=== PATIENT | male | born 1965 | race Caucasian/White ===

== ENCOUNTER 2017-04-01 18:42 | Emergency (ER) | payer OTHER ==
[~2017-04-01] VITALS: Ht 177.8 cm; Wt 80.3 kg
[2017-04-01 18:45] VITALS: TEMP 36.8; Ht 177.8 cm; Wt 80.3 kg
[2017-04-01] MEDS ORDERED: HYDROCODONE/ACETAMOPHEN 5/325MG TAB PO ONE (19:15)
[2017-04-01] MEDS ORDERED: BUPR-267 PO (19:17)
--- NOTE | 2017-04-01 19:48 | DIAGNOSTIC IMAGING REPORT ---
RIGHT SHOULDER 3 VIEWS HISTORY: right shoulder pain Right COMPARISON: None. FINDINGS: There is no fracture or dislocation. Soft tissues are unremarkable. No radiopaque foreign bodies. The right clavicle is intact. IMPRESSION: No fractures. Electronically signed by: Artis Nicole M.D. 04/01/2017 7:46 PM Dictated Date/Time: 04/01/2017 7:46 PM
[2017-04-01] MEDS ORDERED: PRED20TA2 PO (20:27)
[2017-04-01] MEDS ORDERED: HYDR-5688 PO (20:27)
[2017-04-01 20:57] VITALS: BP 137/84; PULSE 78; O2SAT 98
--- NOTE | 2017-04-01 22:16 | EMERGENCY ROOM VISIT NOTE ---
ED Visit Note First contact with patient: 18:51 CHIEF COMPLAINT: Shoulder pain HISTORY OF PRESENT ILLNESS: This 51-year-old male patient presents to the emergency department complaining of pain in the right shoulder worsening over the past 2-3 days. The patient does not recall a distinct injury or trauma. He does lift and move at work, which may be contributing to his pain. There is mild limitation of motion of the arm because of the pain. The pain is moderate, constant and increases with motion of the hand and arm. The patient states the pain is dull and 7/10. The patient has taken NSAIDs without significant relief of the pain. No previous significant previous shoulder disease or injury. No numbness or tingling. No neck and no back pain. No chest pain or shortness of breath. No abdominal pain or nausea/vomiting. No cough. REVIEW OF SYSTEMS: A 6 system review of systems was performed with positives and pertinent negatives in the HPI. ALLERGIES: No known allergies MEDICATIONS: No chronic medications PMH: Otherwise healthy SOCIAL HISTORY: Employed and lives with family PHYSICAL EXAM: Vital Signs: Reviewed nurse's notes, vital signs stable. GENERAL : White male, in no acute distress, but appears to be in pain, well-developed, well-nourished. MUSCULOSKELETAL: There is no deformity in the contour of the right shoulder and there are no deidra deformities noted. There is no sulcus sign. There is tenderness over the supraspinatus and distal clavicle. The patient's range of motion is mildly. Supraspinatus strength for/5. There is mild clavicle tenderness. No tenderness of the humerus, elbow, wrist, or hand. 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 Radial pulse 2+. NECK: No tenderness to palpation over the cervical spine. HEART: Regular rate and rhythm without murmurs gallops or rubs. LUNGS: Clear to auscultation bilaterally without wheezes, rales or rhonchi. No accessory muscle use. No retractions. NEURO: The patient is alert and oriented to person, place, and time. Normal sensation to light and sharp touch. Capillary refill less than 2 seconds. RIGHT SHOULDER 3 VIEWS HISTORY: right shoulder pain Right COMPARISON: None. FINDINGS: There is no fracture or dislocation. Soft tissues are unremarkable. No radiopaque foreign bodies. The right clavicle is intact. IMPRESSION: No fractures. EMERGENCY DEPARTMENT COURSE: Physical exam and history were performed. Nursing notes and EMR were reviewed. The patient appears to have right shoulder pain for the past several days without distinct injury or trauma. X-rays were obtained and do not show evidence of acute fracture or dislocation. The patient was treated here in the ER with Vicodin and prednisone. He will be given a continuation prescription of these medications. I recommend that he follow with orthopedics if his symptoms persist over the rest of the week. He was otherwise invited back to the ER with new, worsening, or concerning symptoms. Problem List Medical Problems: (1) FAM HX-CARDIOVAS DIS NEC Status: Chronic (2) FAM HX-DIABETES MELLITUS Status: Chronic (3) LUMBAGO Status: Chronic (4) TOBACCO USE DISORDER Status: Chronic Current/Historical Medications Scheduled Bupropion Hcl (Bupropion Hcl Er), 150 MG PO DAILY Prednisone (Prednisone Tab), 2 TAB PO DAILY Scheduled PRN Hydrocodone/Acetaminophen 5MG/325MG ([place] 5MG/325MG), 1 TABLET PO Q6 PRN for Pain Allergies Coded Allergies: No Known Allergies (Unverified , 08/09/15) Vital Signs Date Time Temp Pulse Resp B/P (MAP) Pulse Ox O2 Delivery O2 Flow Rate FiO2 04/01/17 20:57 78 18 137/84 98 04/01/17 18:45 36.8 82 16 132/93 96 Room Air Medications Administered Medications (Trade) Dose Ordered Sig/Lew Route Start Time Stop Time Status Last Admin Dose Admin Acetaminophen/ Hydrocodone Bitart ([place] 5/325 Tab) 1 tab NOW ONCE PO 04/01/17 19:15 04/01/17 19:16 DC 04/01/17 19:17 1 TAB Prednisone (PredniSONE TAB) 40 mg NOW STAT PO 04/01/17 19:05 04/01/17 19:06 DC 04/01/17 19:17 40 MG Departure Information Impression Primary Impression: Right shoulder pain Dispostion Home / Self-Care Condition GOOD Prescriptions Prednisone (Prednisone Tab) 20 Mg Tab 2 TAB PO DAILY for 5 Days, #10 TAB Prov: Juan Slater PA-C 04/01/17 Hydrocodone/Acetaminophen 5MG/325MG ([place] 5MG/325MG) Tab 1 TABLET PO Q6 Y for Pain, #12 TAB For Initial Treatment Prov: Juan Slater PA-C 04/01/17 Referrals Scott Castellanos M.D. Forms HOME CARE DOCUMENTATION FORM, Work Instructions, Additional Instructions: Patient was seen and evaluated today in the emergency department fo medical care. May not use right arm at work until 04/05/2017. IMPORTANT VISIT INFORMATION Patient Instructions My [facility] Additional Instructions You were seen and evaluated today on an emergency basis only. This is not a substitute for, or an effort to provide, complete comprehensive medical care. It is not possible to recognize and treat all injuries or illnesses in a single emergency department visit. For this reason it is recommended that you followup with [facility], Dr. Castellanos's office, with any ongoing or persistent symptoms For baseline pain relief you may alternate ibuprofen and acetaminophen every 4 hours for pain control. Take 600 mg ibuprofen (Advil) and then 4 hours later take 1000 mg acetaminophen (Tylenol). Do not take more than 3000 mg acetaminophen in a single day. [place] (hydrocodone/acetaminophen) 5/325 mg every 6 hours as needed for worsening breakthrough pain. Do not drink or drive on [place]. This medication will likely make you tired. Do not take [place] and Tylenol at the same time as both contain acetaminophen. [place] may cause constipation. You may wish to take an [id number] stool softener like Colace if this occurs. Take prednisone as prescribed You are welcome to return to the emergency department anytime with new, worsening, or concerning symptoms. Work Instructions Additional Work Instructions: Patient was seen and evaluated today in the emergency department for medical care. May not use right arm at work until 04/05/2017.
== END 2017-04-01 20:45 | disposition home or self-care (01) ==
LOC: C.EDB 18:43 → C.EDD 20:45
DX: M25.511 Pain in right shoulder (principal); M54.5 Low back pain; F17.200 Nicotine dependence, unspecified, uncomplicated; Z83.3 Family history of diabetes mellitus; Z82.49 Family history of ischemic heart disease and other diseases of the circulatory system

== ENCOUNTER 2017-07-24 19:33 | Emergency (ER) | payer OTHER ==
[~2017-07-24] VITALS: Ht 180.3 cm; Wt 75.0 kg
[~2017-07-24 19:33] MED LIST: BUPR-267 PO; HYDR-5688 PO
[2017-07-24 19:40] VITALS: BP 115/70; TEMP 36.8; Ht 180.3 cm; Wt 75.0 kg
[2017-07-24] MEDS ORDERED: HYDROCODONE/ACETAMOPHEN 5/325MG TAB PO STA (20:03)
[2017-07-24] MEDS ORDERED: NORCO 5/325MG HOME PACK PO STA (20:03)
[2017-07-24] MEDS ORDERED: HYDR-5688 PO (20:06)
[2017-07-24] MEDS ORDERED: PRED20TA2 PO (20:06)
--- NOTE | 2017-07-24 20:08 | EMERGENCY ROOM VISIT NOTE ---
History First contact with patient: 19:54 Chief Complaint: SHOULDER PAIN Stated Complaint: SHOULDER PAIN RIGHT SHOULDER History of Present Illness The patient is a 51 year old male who presents to the Emergency Room via private vehicle accompanied by female with complaints of "shoulder pain right shoulder". The patient states that he has had pain in his right shoulder over the past few years. 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 He denies any chest pain or shortness of breath. It is not worse with exertion, but rather with overhead lifting of the right arm. Review of Systems A complete 6-point Review of Systems was discussed with the patient, with pertinent positives and negatives listed in the History of Present Illness. All remaining Review of Systems questions can be considered negative unless otherwise specified. Past Medical/Surgical History Medical Problems: (1) FAM HX-CARDIOVAS DIS NEC (2) FAM HX-DIABETES MELLITUS (3) LUMBAGO (4) TOBACCO USE DISORDER Family History Diabetes, heart disease, high blood pressure, cancer. Social History Smoking Status: Current Some Day Smoker Alcohol Use: occasionally Occupation Status: employed Current/Historical Medications Scheduled Bupropion Hcl (Bupropion Hcl Er), 150 MG PO DAILY Prednisone (Prednisone Tab), 2 TAB PO DAILY Scheduled PRN Hydrocodone/Acetaminophen 5MG/325MG ([place] 5MG/325MG), 1 TABLET PO Q6 PRN for Pain Hydrocodone/Acetaminophen 5MG/325MG ([place] 5MG/325MG), 1 TABLET PO Q6 PRN for Pain Allergies Coded Allergies: No Known Allergies (Unverified , 08/09/15) Physical Exam Vital Signs Date Time Temp Pulse Resp B/P (MAP) Pulse Ox O2 Delivery O2 Flow Rate FiO2 07/24/17 20:26 74 20 96 07/24/17 19:40 36.8 78 18 115/70 98 Room Air Physical Exam VITAL SIGNS - Vital signs and nursing notes were reviewed. Stable. GENERAL -51-year-old male appearing his stated age who is in no acute distress. Communicates well with provider and answers questions appropriately. SKIN - Without rashes. No petechial rashes. HEAD - NC/AT. LUNGS - Chest wall symmetric without accessory muscle use, intercostals retractions, or central cyanosis. Normal vesicular breath sounds CTA B/L. No wheezes, rales, or rhonchi appreciated. CARDIAC - RRR with S1/S2. No murmur, rubs, or gallops appreciated. EXTREMITIES - No clubbing or peripheral cyanosis. Patient is neurovascularly intact in the right upper extremity. 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 Patient does have difficulty with abduction beyond 90. Negative empty can test. He points to the posterior right shoulder region as the location of pain, but there is no tenderness to palpation here. +5/5 strength noted in UE/LE bilaterally. Medical Decision & Procedures Medications Administered Medications (Trade) Dose Ordered Sig/Lew Route Start Time Stop Time Status Last Admin Dose Admin Acetaminophen/ Hydrocodone Bitart ([place] 5/325mg Home Pack) 1 homepack UD STAT PO 07/24/17 20:03 07/24/17 20:04 DC 07/24/17 20:23 1 HOMEPACK Acetaminophen/ Hydrocodone Bitart ([place] 5/325 Tab) 1 tab NOW STAT PO 07/24/17 20:03 07/24/17 20:04 DC 07/24/17 20:23 1 TAB Prednisone (PredniSONE TAB) 40 mg NOW STAT PO 07/24/17 20:03 07/24/17 20:04 DC 07/24/17 20:23 40 MG Medical Decision Patient was seen and evaluated as above. Previous visits were extensively reviewed. He presents to us today with what appears to be an exacerbation of his underlying chronic shoulder pain. No evidence of heart attack or emergent process on exam. Reassuringly, the pain is reproducible on range of motion of the right shoulder. He declined imaging. He notes that when he received in the past was beneficial. I reviewed the chart, and he received prednisone and [place]. PD MP was reviewed, no red flags. He will be given a short course, and is to follow-up with his family doctor and subsequently the orthopedic doctor who performed the shoulder surgery on the other side. Patient was educated upon management, educated upon worrisome symptoms which to return, had questions answered prior to discharge, and was discharged home in good condition. He was given the first doses here and was not driving home. In the evaluation and treatment of this patient, the following differential diagnoses were considered: Shoulder Contusion, Shoulder Fracture, Shoulder Dislocation, Thoracic Outlet Syndrome, Adhesive Capsulitis, Rotator Cuff Tear, Proximal Clavicle Head Fracture, Apical Pneumonia, Pneumothorax, Hemothorax, or TB. Impression Primary Impression: Shoulder pain, right Departure Information Dispostion Home / Self-Care Condition GOOD Prescriptions Hydrocodone/Acetaminophen 5MG/325MG ([place] 5MG/325MG) Tab 1 TABLET PO Q6 Y for Pain, #12 TAB For Initial Treatment Prov: Dani Haji PA-C 07/24/17 Prednisone (Prednisone Tab) 20 Mg Tab 2 TAB PO DAILY for 5 Days, #10 TAB Prov: Dani Haji PA-C 07/24/17 Referrals Julio Rea M.D. (MEDICAL) (PCP) Godfrey Guevara M.D. Patient Instructions My [facility] Additional Instructions You have been treated in the Emergency Department for Shoulder Pain. You have received pain medicine in the emergency department which impairs your ability to operate a vehicle. It is illegal for you to drive after receiving these medicines. You have been prescribed NORCO to be used for pain control. This is a narcotic medication. You cannot drive or consume alcohol while on this medicine. This medicine should only be used for pain that cannot be controlled with over-the- counter pain medicines. PLEASE NO TYLENOL WITH THIS!! You have been provided the number for an Orthopaedic Surgeon. You should call this number as soon as possible to establish a follow-up visit from today's Emergency Department visit. Keep the shoulder brace/sling in place until evaluated by Orthopedics. Continue to perform range of motion exercises several times per day to help prevent the development of a "frozen shoulder". Return to the Emergency Department if your current symptoms worsen despite treatment course outlined above, or if you develop any of the following symptoms : intractable pain despite aforementioned treatment course or new onset of numbness or tingling of the arm.
[2017-07-24 20:26] VITALS: PULSE 74; O2SAT 96
== END 2017-07-24 20:27 | disposition home or self-care (01) ==
LOC: C.EDB 19:35 → C.EDD 20:27
DX: M25.511 Pain in right shoulder (principal); G89.29 Other chronic pain; F17.200 Nicotine dependence, unspecified, uncomplicated; Z79.899 Other long term (current) drug therapy; Z82.49 Family history of ischemic heart disease and other diseases of the circulatory system; Z83.3 Family history of diabetes mellitus; Z80.9 Family history of malignant neoplasm, unspecified

== ENCOUNTER 2017-12-03 19:25 | Emergency (ER) | payer OTHER ==
[~2017-12-03] VITALS: Ht 180.3 cm; Wt 73.2 kg
[2017-12-03 19:28] VITALS: TEMP 36.9; Ht 180.3 cm; Wt 73.2 kg
[2017-12-03] MEDS ORDERED: SODIUM CHLORIDE 0.9% 1000ML 1,000 ML IV STA (19:48)
[2017-12-03 20:11] VITALS: O2SAT 99
[2017-12-03 20:14] LABS: BASO % 0.6 %; BASO ABS # 0.06 K/uL (0-0.2); EOS % 1.1 %; EOS ABS # 0.11 K/uL (0-0.5); HEMATOCRIT 39.4 % (42-52); HEMOGLOBIN 13.4 g/dL (14.0-18.0); IG# 0.03 K/uL (0.00-0.02); LYMPH % 20.6 %; LYMPH ABS # 2.05 K/uL (1.2-3.4); MEAN CELL VOLUME 84.9 fL (80-100); MEAN CORPUSCULAR HEMOGLOBIN 28.9 pg (25-34); MEAN PLATELET VOLUME 8.9 fL (7.4-10.4); MONO % 4.6 %; MONO ABS # 0.46 K/uL (0.11-0.59); NEUT % 72.8 %; NEUT ABS # 7.25 K/uL (1.4-6.5); PLATELET COUNT 277 K/uL (130-400); RED CELL DISTRIBUTION WIDTH CV 13.5 % (11.5-14.5); RED CELL DISTRIBUTION WIDTH SD 41.6 fL (36.4-46.3); WHITE BLOOD COUNT 9.96 K/uL (4.8-10.8)
--- NOTE | 2017-12-03 20:20 | DIAGNOSTIC IMAGING REPORT ---
CHEST ONE VIEW PORTABLE CLINICAL HISTORY: EVALUATE ALTERED MENTAL STATUS/WEAKNESS COMPARISON STUDY: Chest radiograph May 11, 2013. FINDINGS: Lung volumes are normal. No pneumothorax or pleural effusion is noted. Lungs are clear. Cardiac size is normal. Mediastinal contours are normal. There is no evidence for pulmonary edema. IMPRESSION: No acute cardiopulmonary findings. Electronically signed by: Fabricio Healy M.D. 12/03/2017 8:19 PM Dictated Date/Time: 12/03/2017 8:18 PM
[2017-12-03 20:27] LABS: PTT PATIENT 25.9 SECONDS (21.0-31.0)
[2017-12-03 20:41] LABS: ALBUMIN 4.1 gm/dl (3.4-5.0); ALT/SGPT 24 U/L (12-78); BLOOD UREA NITROGEN 10 mg/dl (7-18); CARBON DIOXIDE 27 mmol/L (21-32); CREATININE 0.95 mg/dl (0.60-1.40); GLUCOSE 121 mg/dl (70-99); POTASSIUM 3.6 mmol/L (3.5-5.1); SODIUM 137 mmol/L (136-145)
[2017-12-03 20:52] LABS: ALKALINE PHOSPHATASE 58 U/L (45-117); AST/SGOT 17 U/L (15-37); PHOSPHORUS 2.5 mg/dl (2.5-4.9); TOTAL PROTEIN 7.4 gm/dl (6.4-8.2)
--- NOTE | 2017-12-03 21:05 | EMERGENCY ROOM VISIT NOTE ---
History Report prepared by Ten: Case Juares Under the Supervision of: Dr. José Church M.D. First contact with patient: 19:43 Chief Complaint: SYNCOPE Stated Complaint: BLACKED OUT, MANUELITOKEY- Nursing Triage Summary: pt presents stating his work was concerned and wanted him to be evaluated. family member states "he was sent home for an episode last week. tonight she called me and said he was on the floor and flailing his arms and couldn't speak right." pt denies LOC, states "i remember everything." in triage, pt is alert and oriented x4, breathing WNL, ambulatory with upright and steady, independent gait, speech clear, and denies pain. History of Present Illness The patient is a 51 year old white male with no pertinent past medical history who presents to the ED with a cc of a stroke-like episode that occurred earlier today at work. Positive shaking, slurring of words. Negative loss of consciousness, cough, fevers, chills, nausea, vomiting, abdominal pain, urinary symptoms, bowel movement problems, worsening numbness. The patient states that he had an episode last week while at work where he was repetitive with questioning and was noted to be shaking and slurring words. He says that he then had another similar episode earlier today. He says that he remembered the entirety of both episodes. The patient states that after the first episode, he called his family doctor, and was told to stop his Prozac. He adds that he has not been sleeping that well recently. The patient notes a family history of strokes. He chews tobacco, and does not use recreational drugs. The patient notes no history of seizures. Source of History: patient, family Onset: Earlier today at work Position: other (global) Symptom Intensity: shaking, slurring words Quality: other (stroke-like episode) Timing: other (episode) Associated Symptoms: No LOC, No fevers, No chills, No cough, No nausea, No vomiting, No abdominal pain, No urinary symptoms (or bowel movement changes), No numbness (worsening) Review of Systems See HPI for pertinent positives and negatives. A total of ten systems were reviewed and were otherwise negative. Past Medical & Surgical Medical Problems: (1) FAM HX-CARDIOVAS DIS NEC (2) FAM HX-DIABETES MELLITUS (3) LUMBAGO (4) TOBACCO USE DISORDER Family History Cancer Diabetes mellitus Heart disease Hypertension Stroke Social History Smoking Status: Current Some Day Smoker Smokeless Tobacco Use: occasional Alcohol Use: occasionally Occupation Status: employed Current/Historical Medications No Active Prescriptions or Reported Meds Allergies Coded Allergies: No Known Allergies (Unverified , 08/09/15) Physical Exam Vital Signs Date Time Temp Pulse Resp B/P (MAP) Pulse Ox O2 Delivery O2 Flow Rate FiO2 12/03/17 22:12 74 18 126/81 99 Room Air 12/03/17 21:07 75 18 154/89 99 Room Air 12/03/17 20:55 73 12/03/17 20:11 99 Room Air 12/03/17 19:28 36.9 83 18 136/100 99 Room Air Physical Exam GENERAL: Awake, alert, well-appearing, NAD HENT: Normocephalic, atraumatic. EYES: Normal conjunctiva. Sclera non-icteric. NECK: Supple. No nuchal rigidity. FROM. RESPIRATORY: CTAB, no rhonchi, wheezing, crackles CARDIAC: RRR, no MRG ABDOMEN: Soft, NTND, BS+ MSK: No chest wall TTP, no LE edema NEURO: CN 2-12 intact, 5/5 upper and lower extremity strength, no dysmetria, no drift, good finger to nose, no sensory deficits. SKIN: No rash or jaundice noted. Medical Decision & Procedures ER Provider Diagnostic Interpretation: X-ray: Per my interpretation, radiologist review. CHEST ONE VIEW PORTABLE CLINICAL HISTORY: EVALUATE ALTERED MENTAL STATUS/WEAKNESS COMPARISON STUDY: Chest radiograph May 11, 2013. FINDINGS: Lung volumes are normal. No pneumothorax or pleural effusion is noted. Lungs are clear. Cardiac size is normal. Mediastinal contours are normal. There is no evidence for pulmonary edema. IMPRESSION: No acute cardiopulmonary findings. Electronically signed by: Fabricio Healy M.D. 12/03/2017 8:19 PM Dictated Date/Time: 12/03/2017 8:18 PM Laboratory Results 12/03/17 20:00 Red Blood Count 4.64, Mean Corpuscular Volume 84.9, Mean Corpuscular Hemoglobin 28.9, Mean Corpuscular Hemoglobin Concent 34.0, Mean Platelet Volume 8.9, Neutrophils (%) (Auto) 72.8, Lymphocytes (%) (Auto) 20.6, Monocytes (%) (Auto) 4.6, Eosinophils (%) (Auto) 1.1, Basophils (%) (Auto) 0.6, Neutrophils # (Auto) 7.25, Lymphocytes # (Auto) 2.05, Monocytes # (Auto) 0.46, Eosinophils # (Auto) 0.11, Basophils # (Auto) 0.06 12/03/17 20:00 Test 12/03/17 20:00 12/03/17 20:10 White Blood Count 9.96 K/uL (4.8-10.8) Red Blood Count 4.64 M/uL (4.7-6.1) Hemoglobin 13.4 g/dL (14.0-18.0) Hematocrit 39.4 % (42-52) Mean Corpuscular Volume 84.9 fL (80-100) Mean Corpuscular Hemoglobin 28.9 pg (25-34) Mean Corpuscular Hemoglobin Concent 34.0 g/dl (32-36) Platelet Count 277 K/uL (130-400) Mean Platelet Volume 8.9 fL (7.4-10.4) Neutrophils (%) (Auto) 72.8 % Lymphocytes (%) (Auto) 20.6 % Monocytes (%) (Auto) 4.6 % Eosinophils (%) (Auto) 1.1 % Basophils (%) (Auto) 0.6 % Neutrophils # (Auto) 7.25 K/uL (1.4-6.5) Lymphocytes # (Auto) 2.05 K/uL (1.2-3.4) Monocytes # (Auto) 0.46 K/uL (0.11-0.59) Eosinophils # (Auto) 0.11 K/uL (0-0.5) Basophils # (Auto) 0.06 K/uL (0-0.2) RDW Standard Deviation 41.6 fL (36.4-46.3) RDW Coefficient of Variation 13.5 % (11.5-14.5) Immature Granulocyte % (Auto) 0.3 % Immature Granulocyte # (Auto) 0.03 K/uL (0.00-0.02) Prothrombin Time 11.0 SECONDS (9.0-12.0) Prothromb Time International Ratio 1.0 (0.9-1.1) Activated Partial Thromboplast Time 25.9 SECONDS (21.0-31.0) Partial Thromboplastin Ratio 1.0 Anion Gap 5.0 mmol/L (3-11) Est Creatinine Clear Calc Drug Dose 97.4 ml/min Estimated GFR () 108.5 Estimated GFR (Non- 93.6 BUN/Creatinine Ratio 10.4 (10-20) Calcium Level 9.0 mg/dl (8.5-10.1) Phosphorus Level 2.5 mg/dl (2.5-4.9) Magnesium Level 2.1 mg/dl (1.8-2.4) Total Bilirubin 0.6 mg/dl (0.2-1) Direct Bilirubin < 0.1 mg/dl (0-0.2) Aspartate Amino Transf (AST/SGOT) 17 U/L (15-37) Alanine Aminotransferase (ALT/SGPT) 24 U/L (12-78) Alkaline Phosphatase 58 U/L (45-117) Troponin I < 0.015 ng/ml (0-0.045) Total Protein 7.4 gm/dl (6.4-8.2) Albumin 4.1 gm/dl (3.4-5.0) Thyroid Stimulating Hormone (TSH) 1.960 uIu/ml (0.300-4.500) Urine Color YELLOW Urine Appearance CLEAR (CLEAR) Urine pH 5.5 (4.5-7.5) Urine Specific [place] 1.015 (1.000-1.030) Urine Protein NEG (NEG) Urine Glucose (UA) NEG (NEG) Urine Ketones NEG (NEG) Urine Occult Blood NEG (NEG) Urine Nitrite NEG (NEG) Urine Bilirubin NEG (NEG) Urine Urobilinogen NEG (NEG) Urine Leukocyte Esterase NEG (NEG) Urine Opiates Screen NEG (NEG) Urine Methadone, Qualitative NEG (NEG) Urine Barbiturates NEG (NEG) Urine Phencyclidine (PCP) Level NEG (NEG) Ur Amphetamine/Methamphetamine NEG (NEG) MDMA (Ecstasy) Screen NEG (NEG) Urine Benzodiazepines Screen NEG (NEG) Urine Cocaine Metabolite NEG (NEG) Urine Marijuana (THC) NEG (NEG) Medications Administered Medications (Trade) Dose Ordered Sig/Lew Route Start Time Stop Time Status Last Admin Dose Admin Sodium Chloride 1,000 ml @ 999 mls/hr Q1H1M STAT IV 12/03/17 19:48 12/03/17 20:53 DC 12/03/17 20:04 999 MLS/HR ECG Per My Interpretation Indication: syncope Rate (beats per minute): 75 Rhythm: normal sinus Findings: left axis deviation, other (normal intervals, no sts changes or twi) ED Course 2054: The patient was evaluated in room C3. A complete history and physical exam was performed. 2219: I reevaluated the patient and he is resting comfortably. Discussed results and discharge instructions: he verbalized understanding and agreement. The patient is ready for discharge. Medical Decision The patient is a 51 year old white male with no pertinent past medical history who presents to the ED with a cc of a stroke-like episode that occurred earlier today at work. Positive shaking, slurring of words. Negative loss of consciousness, cough, fevers, chills, nausea, vomiting, abdominal pain, urinary symptoms, bowel movement problems, worsening numbness. Differential diagnosis: Etiologies such as vasovagal event, infection, hypoglycemia, electrolyte abnormalities, cardiac sources, intracerebral event, toxicologic, neurologic, as well as others were entertained. Patient seen and evaluated at bedside. Patient reported had syncope/seizure at work. Patient is adamant that he was looking for parts on the ground of his work place. He remember whole event. No tongue biting or incontinence. Does use chewing tobacco. No smoking. Occasional EtOH. Patient has benign neuro exam. Given lack of seizure, recalls events, normal neuro and no GRULLON, weakness, numbness, or tingling, no CT brain at this time. EKG, labs, UA, UDS obtained. EKG w/o overt arrythmia, trop neg. CXR clear. Mild anemia. UA and UDS neg acute. Patient feeling well. Discussed findings w/ patient. Do not believe he needs further work up but should f/u w/ PCP. Agreed w/ POC. D/c'ed to home. Medication Reconcilliation Current Medication List: was personally reviewed by me Blood Pressure Screening Patient's blood pressure: Elevated blood pressure Blood pressure disposition: Elevated BP felt to be situational Impression Primary Impression: Encounter for smoking cessation counseling Additional Impressions: Lightheaded Anemia Scribe Attestation The scribe's documentation has been prepared under my direction and personally reviewed by me in its entirety. I confirm that the note above accurately reflects all work, treatment, procedures, and medical decision making performed by me. Departure Information Dispostion Home / Self-Care Prescriptions No Active Prescriptions or Reported Meds Referrals Julio Rea M.D. (MEDICAL) (PCP) Patient Instructions Dizziness Fainting Poss Causes, My [facility] Additional Instructions Please return to the emergency department if you have worsening or recurrent symptoms not amenable to at-home treatment. Please call for a follow-up appointment with her primary care physician. Please take your medications as prescribed. If you have other concerns and/or complaints please feel free to also call your primary care physician's office or return the ED for further evaluation, management, and treatment. You may take 600 mg Ibuprofen every 6 hours as needed for pain with food for no more than 2 consecutive days. You may take tylenol 1000 mg every 6 hours as needed for pain. You may take motrin and tylenol separately or at the same time. Take your medications as prescribed. You have been examined and treated today on an emergency basis only. This is not a substitute for, or an effort to provide, complete comprehensive medical care. It is impossible to recognize and treat all injuries or illnesses in a single emergency department visit. It is therefore important that you follow up closely with [facility], your PCP, and/or your specialist(s). Call as soon as possible for an appointment. Thank you for your time and consideration. I look forward to speaking with you again soon. Please don't hesitate to call us if you have any questions. Problem Qualifiers Additional Impressions: Anemia Anemia type: unspecified type Qualified Codes: D64.9 - Anemia, unspecified
[2017-12-03 22:12] VITALS: BP 126/81; PULSE 74; O2SAT 99
== END 2017-12-03 22:22 | disposition home or self-care (01) ==
LOC: C.EDB 19:26 → C.EDC 22:22
DX: R42 Dizziness and giddiness (principal); D64.9 Anemia, unspecified; Z71.6 Tobacco abuse counseling; Z82.3 Family history of stroke; Z82.49 Family history of ischemic heart disease and other diseases of the circulatory system; Z83.3 Family history of diabetes mellitus; Z80.9 Family history of malignant neoplasm, unspecified; F17.210 Nicotine dependence, cigarettes, uncomplicated; F17.220 Nicotine dependence, chewing tobacco, uncomplicated

== ENCOUNTER 2017-12-05 17:51 | Emergency (ER) | payer OTHER ==
[~2017-12-05] VITALS: Ht 180.3 cm; Wt 72.0 kg
[2017-12-05 17:58] VITALS: TEMP 36.9; Ht 180.3 cm; Wt 72.0 kg
[2017-12-05] MEDS ORDERED: SODIUM CHLORIDE 0.9% 1000ML 1,000 ML IV STA (18:55)
--- NOTE | 2017-12-05 18:59 | EMERGENCY ROOM VISIT NOTE ---
History Report prepared by Ten: Ricardo Fernandez Under the Supervision of: Dr. Colten Urbina M.D. 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 I was here a week ago for the same thing." History of Present Illness The patient is a 51 year old male who presents to the Emergency Room with complaints of a resolved syncopal episode that occurred prior to arrival. The patient states he was sitting down at work, stood up, and walked around. He reports he felt fine when he stood up and was walking. The patient notes he went to his work bench to work and does not remember anything after that. He states after leaning onto his work bench he zoned out and 'blacked out' for a few seconds. The patient reports his co-workers said he came to and knocked various tools off the work bench. He notes he had a similar episode last week where he was found on the ground. The patient states he does not remember if he fell or if he was looking for tools on the ground. EMR shows the patient was evaluated 9 years ago for a syncopal episode that lasted 25 minutes, and he did not follow up with his PCP after. He notes he has not had problems until just recently. The patient states he hit his head on the car door a few months ago by accident. He reports he has an appointment with his PCP in a few days for follow up from a week ago. The patient notes he was placed on Prozac because he was slightly depressed and slept a lot. He states he did not like it, so he stopped taking it. The patient denies fevers, chills, cough, congestion, nausea , vomiting, diarrhea, past history of chronic illness, trouble eating, and trouble drinking. He notes he rarely drinks alcohol. 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 A total of ten systems were reviewed and were otherwise negative. Past Medical & Surgical Medical Problems: (1) FAM HX-CARDIOVAS DIS NEC (2) FAM HX-DIABETES MELLITUS (3) LUMBAGO (4) TOBACCO USE DISORDER Family History Cancer Diabetes mellitus Heart disease Hypertension Stroke Social History Smoking Status: Former Smoker Alcohol Use: occasionally Marital Status: single Occupation Status: employed Current/Historical Medications No Active Prescriptions or Reported Meds Allergies Coded Allergies: No Known Allergies (Unverified , 12/05/17) Physical Exam Vital Signs Date Time Temp Pulse Resp B/P (MAP) Pulse Ox O2 Delivery O2 Flow Rate FiO2 12/05/17 21:13 77 18 129/69 98 12/05/17 17:58 36.9 82 20 154/75 98 Room Air Physical Exam GENERAL: Awake, alert, well-appearing, in no distress HENT: Normocephalic, atraumatic. Oropharynx with dry mucus membranes, no evidence of tongue biting, otherwise unremarkable. EYES: Normal conjunctiva. Sclera non-icteric. NECK: Supple. No nuchal rigidity. FROM. No JVD. RESPIRATORY: Clear to auscultation. CARDIAC: Regular rate, normal rhythm. Extremities warm and well perfused. Pulses equal. ABDOMEN: Soft, non-distended. No tenderness to palpation. No rebound or guarding. No masses. RECTAL: Deferred. MUSCULOSKELETAL: Chest examination reveals no tenderness. The back is symmetrical on inspection without obvious abnormality. There is no CVA tenderness to palpation. No joint edema. LOWER EXTREMITIES: Calves are equal size bilaterally and non-tender. No edema. No discoloration. NEURO: Normal sensorium. No sensory or motor deficits noted. normal cerebellar function with [id number], alternating palms, [id number] SKIN: No rash or jaundice noted. Medical Decision & Procedures ER Provider Diagnostic Interpretation: Radiology results as stated below per my review and radiologist interpretation: HEAD WITHOUT CONTRAST (CT) CLINICAL HISTORY: 51 years-old Male presenting with syncope. TECHNIQUE: Multidetector CT imaging of the head was performed without the use of intravenous contrast. IV contrast: None. A dose lowering technique was used consistent with the principles of ALARA (as low as reasonably achievable). COMPARISON: 11/16/2008. CT DOSE (mGy.cm): The estimated cumulative dose is 537.48 mGy.cm. 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 Chronic leftward shift of the septum pellucidum. No hydrocephalus. Apparent crowding of the foramen magnum may indicate tonsillar ectopia, which is unchanged from prior. Brain parenchyma normal in appearance with preserved archer-white differentiation. No mass effect or midline shift. No hemorrhage or acute territorial infarct. No extra-axial fluid collection. Mucosal thickening in ethmoid air cells. Calvarium intact. IMPRESSION: 1. No acute intracranial abnormality. 2. Possible tonsillar ectopia, which is chronic. Electronically signed by: Scott Hanson M.D. 12/05/2017 7:34 PM Dictated Date/Time: 12/05/2017 7:31 PM CHEST ONE VIEW PORTABLE CLINICAL HISTORY: 51 years-old Male presenting with ABDOMINAL PAIN/GI. TECHNIQUE: Portable upright AP view of the chest was obtained. COMPARISON: 12/03/2017. FINDINGS: Cardiomediastinal silhouette normal. Lungs and pleural spaces clear. Osseous structures normal. Upper abdomen normal. IMPRESSION: 1. No acute cardiopulmonary disease. Electronically signed by: Scott Hanson M.D. 12/05/2017 8:10 PM Dictated Date/Time: 12/05/2017 8:10 PM Laboratory Results 12/05/17 19:09 Red Blood Count 4.84, Mean Corpuscular Volume 86.2, Mean Corpuscular Hemoglobin 28.9, Mean Corpuscular Hemoglobin Concent 33.6, Mean Platelet Volume 9.2, Neutrophils (%) (Auto) 66.6, Lymphocytes (%) (Auto) 25.1, Monocytes (%) (Auto) 6.5, Eosinophils (%) (Auto) 1.2, Basophils (%) (Auto) 0.4, Neutrophils # (Auto) 6.17, Lymphocytes # (Auto) 2.32, Monocytes # (Auto) 0.60, Eosinophils # (Auto) 0.11, Basophils # (Auto) 0.04 12/05/17 19:09 Test 12/05/17 19:09 12/05/17 19:30 White Blood Count 9.26 K/uL (4.8-10.8) Red Blood Count 4.84 M/uL (4.7-6.1) Hemoglobin 14.0 g/dL (14.0-18.0) Hematocrit 41.7 % (42-52) Mean Corpuscular Volume 86.2 fL (80-100) Mean Corpuscular Hemoglobin 28.9 pg (25-34) Mean Corpuscular Hemoglobin Concent 33.6 g/dl (32-36) Platelet Count 299 K/uL (130-400) Mean Platelet Volume 9.2 fL (7.4-10.4) Neutrophils (%) (Auto) 66.6 % Lymphocytes (%) (Auto) 25.1 % Monocytes (%) (Auto) 6.5 % Eosinophils (%) (Auto) 1.2 % Basophils (%) (Auto) 0.4 % Neutrophils # (Auto) 6.17 K/uL (1.4-6.5) Lymphocytes # (Auto) 2.32 K/uL (1.2-3.4) Monocytes # (Auto) 0.60 K/uL (0.11-0.59) Eosinophils # (Auto) 0.11 K/uL (0-0.5) Basophils # (Auto) 0.04 K/uL (0-0.2) RDW Standard Deviation 42.2 fL (36.4-46.3) RDW Coefficient of Variation 13.3 % (11.5-14.5) Immature Granulocyte % (Auto) 0.2 % Immature Granulocyte # (Auto) 0.02 K/uL (0.00-0.02) Anion Gap 7.0 mmol/L (3-11) Est Creatinine Clear Calc Drug Dose 102.2 ml/min Estimated GFR () 116.4 Estimated GFR (Non- 100.4 BUN/Creatinine Ratio 9.7 (10-20) Calcium Level 9.4 mg/dl (8.5-10.1) Magnesium Level 2.2 mg/dl (1.8-2.4) Total Bilirubin 0.4 mg/dl (0.2-1) Direct Bilirubin < 0.1 mg/dl (0-0.2) Aspartate Amino Transf (AST/SGOT) 16 U/L (15-37) Alanine Aminotransferase (ALT/SGPT) 25 U/L (12-78) Alkaline Phosphatase 56 U/L (45-117) Troponin I < 0.015 ng/ml (0-0.045) Total Protein 7.8 gm/dl (6.4-8.2) Albumin 4.3 gm/dl (3.4-5.0) Lipase 86 U/L (73-393) Thyroid Stimulating Hormone (TSH) 3.110 uIu/ml (0.300-4.500) Ethyl Alcohol mg/dL < 3.0 mg/dl (0-3) Urine Color YELLOW Urine Appearance CLEAR (CLEAR) Urine pH 5.0 (4.5-7.5) Urine Specific [place] 1.029 (1.000-1.030) Urine Protein NEG (NEG) Urine Glucose (UA) NEG (NEG) Urine Ketones TRACE (NEG) Urine Occult Blood NEG (NEG) Urine Nitrite NEG (NEG) Urine Bilirubin NEG (NEG) Urine Urobilinogen NEG (NEG) Urine Leukocyte Esterase NEG (NEG) Urine Opiates Screen NEG (NEG) Urine Methadone, Qualitative NEG (NEG) Urine Barbiturates NEG (NEG) Urine Phencyclidine (PCP) Level NEG (NEG) Ur Amphetamine/Methamphetamine NEG (NEG) MDMA (Ecstasy) Screen NEG (NEG) Urine Benzodiazepines Screen NEG (NEG) Urine Cocaine Metabolite NEG (NEG) Urine Marijuana (THC) NEG (NEG) Laboratory results reviewed by me Medications Administered Medications (Trade) Dose Ordered Sig/Lew Route Start Time Stop Time Status Last Admin Dose Admin Sodium Chloride 1,000 ml @ 999 mls/hr Q1H1M STAT IV 12/05/17 18:55 12/05/17 19:55 DC 12/05/17 19:11 999 MLS/HR ECG Per My Interpretation Indication: syncope Rate (beats per minute): 72 Rhythm: normal sinus Findings: no acute ischemic change, other (Normal axis) ED Course 184: The patient was evaluated in room B02. A complete history and physical exam was performed. Medical Decision I reviewed the patient's past medical history, medications, and the nursing notes as described above. Differential diagnosis: Etiologies such as vasovagal event, infection, hypoglycemia, electrolyte abnormalities, cardiac sources, intracerebral event, toxicologic, neurologic, as well as others were entertained. The patient is a 51 y/o gentleman who presents to the emergency department with episode of "blacking out" for several seconds while at work per HPI. 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 Additionally, seen in ED in 2008 for similar episode as well. Of note, the patient did not fall to the ground rather was reported to have a staring spell after which he became alert with a startle. On arrival the patient is in NAD, AFVSS. Neuro intact. EKG unremarkable. Trop negative. Wbc wnl. Chemistry unremarkable. CXR negative. CT head negative for acute findings. Patient feeling improved after IVF. Unclear etiology to patient's episode. Plan for pcp f/u for additional evaluation. Patient concerned that his work may be exposing him to a substance that could be causing the episode however no other co-workers with similar episodes. Given another reassuring w/u today, unlikely to have emergent process at this time. Findings and plan for follow-up reviewed with patient. Patient agreeable and d/c'd per discharge instructions. Medication Reconcilliation Current Medication List: was personally reviewed by me Blood Pressure Screening Patient's blood pressure: Elevated blood pressure Blood pressure disposition: Elevated BP felt to be situational Impression Primary Impression: Near syncope Scribe Attestation The scribe's documentation has been prepared under my direction and personally reviewed by me in its entirety. I confirm that the note above accurately reflects all work, treatment, procedures, and medical decision making performed by me. Departure Information Dispostion Home / Self-Care Prescriptions No Active Prescriptions or Reported Meds Referrals Julio Rea M.D. (MEDICAL) (PCP) Patient Instructions ED Near Syncope [facility], My [facility] Additional Instructions Please follow up with your primary care physician as scheduled for re- evaluation and to arrange for possible additional testing if needed. The cause of your symptoms is unclear at this time. Otherwise, your exam, EKG, chest xray, lab results, and CT scan did not show signs of an emergent condition at this time. Drink plenty of fluids to ensure hydration. Return to the emergency department for worsening symptoms as described in the accompanying instructions. Work Instructions Return To Work: after follow-up Specific Date: 12/11/2013 Additional Instructions: Or as determined by the patient's doctor.
[2017-12-05 19:31] LABS: BASO % 0.4 %; BASO ABS # 0.04 K/uL (0-0.2); EOS % 1.2 %; EOS ABS # 0.11 K/uL (0-0.5); HEMATOCRIT 41.7 % (42-52); IG# 0.02 K/uL (0.00-0.02); LYMPH % 25.1 %; LYMPH ABS # 2.32 K/uL (1.2-3.4); MEAN CELL VOLUME 86.2 fL (80-100); MEAN CORPUSCULAR HEMOGLOBIN 28.9 pg (25-34); MEAN CORPUSCULAR HGB CONC 33.6 g/dl (32-36); MEAN PLATELET VOLUME 9.2 fL (7.4-10.4); MONO % 6.5 %; NEUT % 66.6 %; NEUT ABS # 6.17 K/uL (1.4-6.5); PLATELET COUNT 299 K/uL (130-400); RED CELL DISTRIBUTION WIDTH CV 13.3 % (11.5-14.5); RED CELL DISTRIBUTION WIDTH SD 42.2 fL (36.4-46.3); WHITE BLOOD COUNT 9.26 K/uL (4.8-10.8)
--- NOTE | 2017-12-05 19:35 | DIAGNOSTIC IMAGING REPORT ---
HEAD WITHOUT CONTRAST (CT) CLINICAL HISTORY: 51 years-old Male presenting with syncope. TECHNIQUE: Multidetector CT imaging of the head was performed without the use of intravenous contrast. IV contrast: None. A dose lowering technique was used consistent with the principles of ALARA (as low as reasonably achievable). COMPARISON: 11/16/2008. CT DOSE (mGy.cm): The estimated cumulative dose is 537.48 mGy.cm. 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 Chronic leftward shift of the septum pellucidum. No hydrocephalus. Apparent crowding of the foramen magnum may indicate tonsillar ectopia, which is unchanged from prior. Brain parenchyma normal in appearance with preserved archer-white differentiation. No mass effect or midline shift. No hemorrhage or acute territorial infarct. No extra-axial fluid collection. Mucosal thickening in ethmoid air cells. Calvarium intact. IMPRESSION: 1. No acute intracranial abnormality. 2. Possible tonsillar ectopia, which is chronic. Electronically signed by: Scott Hanson M.D. 12/05/2017 7:34 PM Dictated Date/Time: 12/05/2017 7:31 PM
[2017-12-05 19:48] LABS: ALBUMIN 4.3 gm/dl (3.4-5.0); ALT/SGPT 25 U/L (12-78); BLOOD UREA NITROGEN 9 mg/dl (7-18); CALCIUM 9.4 mg/dl (8.5-10.1); CARBON DIOXIDE 27 mmol/L (21-32); CREATININE 0.89 mg/dl (0.60-1.40); GLUCOSE 84 mg/dl (70-99); LIPASE 86 U/L (73-393); POTASSIUM 3.6 mmol/L (3.5-5.1); SODIUM 140 mmol/L (136-145)
[2017-12-05 19:59] LABS: ALKALINE PHOSPHATASE 56 U/L (45-117); AST/SGOT 16 U/L (15-37); TOTAL PROTEIN 7.8 gm/dl (6.4-8.2)
--- NOTE | 2017-12-05 20:12 | DIAGNOSTIC IMAGING REPORT ---
CHEST ONE VIEW PORTABLE CLINICAL HISTORY: 51 years-old Male presenting with ABDOMINAL PAIN/GI. TECHNIQUE: Portable upright AP view of the chest was obtained. COMPARISON: 12/03/2017. FINDINGS: Cardiomediastinal silhouette normal. Lungs and pleural spaces clear. Osseous structures normal. Upper abdomen normal. IMPRESSION: 1. No acute cardiopulmonary disease. Electronically signed by: Scott Hanson M.D. 12/05/2017 8:10 PM Dictated Date/Time: 12/05/2017 8:10 PM
[2017-12-05 21:13] VITALS: BP 129/69; PULSE 77; O2SAT 98
== END 2017-12-05 21:19 | disposition home or self-care (01) ==
LOC: C.EDB 17:52
DX: R55 Syncope and collapse (principal); Z87.891 Personal history of nicotine dependence; Z82.49 Family history of ischemic heart disease and other diseases of the circulatory system; Z83.3 Family history of diabetes mellitus; Z80.9 Family history of malignant neoplasm, unspecified; Z82.3 Family history of stroke

== ENCOUNTER 2020-09-16 10:47 | Inpatient (IN) ==
--- OUTSIDE RECORDS SUMMARY | 2020-09-16 10:53 | External Medical Summary | Continuity of Care Document ---
:1965 Author Name Armando Levy Address Unavailable Unavailable , Care Team Providers Name Role Phone Armando Levy Unavailable [email or web address] PCP, UNKNOWN Unavailable Unavailable Problems Active medical history not documented Allergies and Adverse Reactions Allergy history not documented Medications Medications not documented Procedures Procedures not documented Immunizations Immunizations not documented Plan of Treatment Planned Observations Planned Goals not documented Results No Known Results Results not documented
[2020-09-16] MEDS ORDERED: SODIUM CHLORIDE 0.9% 1000ML 2,000 ML IV ONE (11:52)
[2020-09-16] MEDS ORDERED: ACETAMINOPHEN 1,000 MG/100 ML VIAL IV STA (11:52)
--- NOTE | 2020-09-16 11:56 | Emergency Department Note ---
History of Present Illness General Chief Complaint: Shortness of Breath/Dyspnea Time Seen by Provider: 09/16/20 11:33 Source: patient Mode of arrival: ambulatory Limitations: no limitations History of Present Illness Provider Complaint: shortness of breath, cough, pain with inspiration and chest pain Onset (ago): day(s) (6) Severity: severe HPI Narrative: This 54-year-old male patient presents to the emergency department today for evaluation of shortness of breath, fever, cough. The patient contacted EMS today due to worsening shortness of breath, unable to walk more than 5 to 10 feet without having to stop to take a break. He states he has been sick since last Saturday with congestion, loss of taste and smell, cough, and mild shortness of breath. Symptoms have been progressively worsening throughout the week. Per EMS report, patient's O2 saturation was 70% upon their arrival. He has been on 12 L O2 via oxy mask and is feeling somewhat better at this time. He reports chest pain, particularly with fully expanding his lungs. He denies abdominal pain, nausea, vomiting. He does report some wheezing and states he did cough up a little bit of blood earlier in the week, but cough has been nonproductive since that time. He denies any numbness or tingling. No headache, dizziness, vomiting. Related Data Home oxygen amount: none Home Medications Medication Instructions Recorded Confirmed Type acetaminophen [Tylenol Extra 500 mg PO Q6H PRN 09/16/20 09/16/20 History Strength] ibuprofen [Advil] 200 mg PO Q6H PRN 09/16/20 09/16/20 History Allergies Allergy/AdvReac Type Severity Reaction Status Date / Time No Known Allergies Allergy Unverified 09/16/20 12:35 Past Med/Surg History Medical History No significant past medical history Social History Smoking Status: Former smoker Feels Safe at Home: Yes Review of Systems A total of 10 systems reviewed and were otherwise negative Physical Exam Vital Signs: Vital Signs - 24 hr 09/16/20 10:53 09/16/20 10:55 09/16/20 11:00 Temperature Temperature Source Pulse Rate 110 H 100 H 103 H Pulse Rate [Right Finger] Pulse Rate from Sp O2 Sensor 105 H 101 H 103 H Respiratory Rate 42 H 38 H 34 H Respiratory Effort / Characteristics Respiratory Depth Respiratory Patter n Blood Pressure 132/77 129/80 Blood Pressure [Ri ght Arm] Blood Pressure Kelsey n 86 87 Blood Pressure Kelsey n [Right Arm] Blood Pressure Pos ition Pulse Oximetry 91 91 90 Oxygen Delivery Me thod Oxygen Flow Rate Fraction of Inspir ed Oxygen Sepsis Recent Feve r Within 48 Hours Sepsis New/Unexpla ined Change in Men kirby Status Sepsis Action Take n by Nursing Oxygen Flow Rate - Titration Pulse Oximetry Pos t Tiitration 09/16/20 11:01 09/16/20 11:12 09/16/20 11:30 Temperature 38.2 C H Temperature Source Oral Pulse Rate 100 H 99 H 86 Pulse Rate [Right Finger] Pulse Rate from Sp O2 Sensor 102 H Respiratory Rate 35 H 18 39 H Respiratory Effort / Characteristics Non-Labored Respiratory Depth Normal Respiratory Patter n Regular Blood Pressure 132/77 123/68 Blood Pressure [Ri ght Arm] Blood Pressure Kelsey n 95 76 Blood Pressure Kelsey n [Right Arm] Blood Pressure Pos ition Lying Pulse Oximetry 88 L 94 Oxygen Delivery Me thod [place] Oxygen Flow Rate 6 Fraction of Inspir ed Oxygen 86 Sepsis Recent Feve r Within 48 Hours Yes Sepsis New/Unexpla ined Change in Men kirby Status No Sepsis Action Take n by Nursing No Action Required Oxygen Flow Rate - Titration 12 Pulse Oximetry Pos t Tiitration 09/16/20 11:31 09/16/20 11:52 09/16/20 12:00 Temperature Temperature Source Pulse Rate 90 95 H Pulse Rate [Right Finger] Pulse Rate from Sp O2 Sensor 90 Respiratory Rate 49 H 30 H Respiratory Effort / Characteristics Respiratory Depth Respiratory Patter n Blood Pressure 120/70 Blood Pressure [Ri ght Arm] Blood Pressure Kelsey n 82 Blood Pressure Kelsey n [Right Arm] Blood Pressure Pos ition Pulse Oximetry 87 L Oxygen Delivery Me thod [place] Oxygen Flow Rate Fraction of Inspir ed Oxygen Sepsis Recent Feve r Within 48 Hours Sepsis New/Unexpla ined Change in Men kirby Status Sepsis Action Take n by Nursing Oxygen Flow Rate - Titration Pulse Oximetry Pos t Tiitration 09/16/20 12:01 09/16/20 12:18 09/16/20 12:30 Temperature Temperature Source Pulse Rate 80 98 H Pulse Rate [Right Finger] Pulse Rate from Sp O2 Sensor 81 Respiratory Rate 43 H 24 Respiratory Effort / Characteristics Respiratory Depth Respiratory Patter n Blood Pressure 126/66 Blood Pressure [Ri ght Arm] Blood Pressure Kelsey n 86 Blood Pressure Kelsey n [Right Arm] Blood Pressure Pos ition Pulse Oximetry 89 L 86 L Oxygen Delivery Me thod [place] Oxygen Flow Rate 12 Fraction of Inspir ed Oxygen Sepsis Recent Feve r Within 48 Hours Sepsis New/Unexpla ined Change in Men kirby Status Sepsis Action Take n by Nursing Oxygen Flow Rate - Titration 15 Pulse Oximetry Pos t Tiitration 94 09/16/20 13:00 09/16/20 13:01 09/16/20 13:30 Temperature Temperature Source Pulse Rate 98 H 82 71 Pulse Rate [Right Finger] Pulse Rate from Sp O2 Sensor Respiratory Rate 30 H 34 H 33 H Respiratory Effort / Characteristics Respiratory Depth Respiratory Patter n Blood Pressure 110/65 110/64 Blood Pressure [Ri ght Arm] Blood Pressure Kelsey n 76 72 Blood Pressure Kelsey n [Right Arm] Blood Pressure Pos ition Pulse Oximetry Oxygen Delivery Me thod Oxygen Flow Rate Fraction of Inspir ed Oxygen Sepsis Recent Feve r Within 48 Hours Sepsis New/Unexpla ined Change in Men kirby Status Sepsis Action Take n by Nursing Oxygen Flow Rate - Titration Pulse Oximetry Pos t Tiitration 09/16/20 13:31 09/16/20 14:00 09/16/20 14:01 Temperature Temperature Source Pulse Rate 70 71 101 H Pulse Rate [Right Finger] Pulse Rate from Sp O2 Sensor Respiratory Rate 33 H 25 H 19 Respiratory Effort / Characteristics Respiratory Depth Respiratory Patter n Blood Pressure 109/60 Blood Pressure [Ri ght Arm] Blood Pressure Kelsey n 65 Blood Pressure Kelsey n [Right Arm] Blood Pressure Pos ition Pulse Oximetry Oxygen Delivery Me thod Oxygen Flow Rate Fraction of Inspir ed Oxygen Sepsis Recent Feve r Within 48 Hours Sepsis New/Unexpla ined Change in Men kirby Status Sepsis Action Take n by Nursing Oxygen Flow Rate - Titration Pulse Oximetry Pos t Tiitration 09/16/20 14:30 09/16/20 14:31 09/16/20 15:00 Temperature Temperature Source Pulse Rate 89 86 85 Pulse Rate [Right Finger] Pulse Rate from Sp O2 Sensor 84 Respiratory Rate 35 H 30 H 28 H Respiratory Effort / Characteristics Respiratory Depth Respiratory Patter n Blood Pressure 117/64 109/68 Blood Pressure [Ri ght Arm] Blood Pressure Kelsey n 83 75 Blood Pressure Kelsey n [Right Arm] Blood Pressure Pos ition Pulse Oximetry 94 94 89 L Oxygen Delivery Me thod Oxygen Flow Rate Fraction of Inspir ed Oxygen Sepsis Recent Feve r Within 48 Hours Sepsis New/Unexpla ined Change in Men kirby Status Sepsis Action Take n by Nursing Oxygen Flow Rate - Titration Pulse Oximetry Pos t Tiitration 09/16/20 15:01 09/16/20 15:30 09/16/20 15:31 Temperature Temperature Source Pulse Rate 86 89 86 Pulse Rate [Right Finger] Pulse Rate from Sp O2 Sensor 87 87 86 Respiratory Rate 32 H 19 21 Respiratory Effort / Characteristics Respiratory Depth Respiratory Patter n Blood Pressure 116/71 Blood Pressure [Ri ght Arm] Blood Pressure Kelsey n 83 Blood Pressure Kelsey n [Right Arm] Blood Pressure Pos ition Pulse Oximetry 89 L 94 94 Oxygen Delivery Me thod Oxygen Flow Rate Fraction of Inspir ed Oxygen Sepsis Recent Feve r Within 48 Hours Sepsis New/Unexpla ined Change in Men kirby Status Sepsis Action Take n by Nursing Oxygen Flow Rate - Titration Pulse Oximetry Pos t Tiitration 09/16/20 16:00 09/16/20 16:01 09/16/20 16:30 Temperature Temperature Source Pulse Rate 78 72 70 Pulse Rate [Right Finger] Pulse Rate from Sp O2 Sensor 79 71 70 Respiratory Rate 34 H 36 H 32 H Respiratory Effort / Characteristics Respiratory Depth Respiratory Patter n Blood Pressure 120/68 115/70 Blood Pressure [Ri ght Arm] Blood Pressure Kelsey n 76 80 Blood Pressure Kelsey n [Right Arm] Blood Pressure Pos ition Pulse Oximetry 93 94 98 Oxygen Delivery Me thod Oxygen Flow Rate Fraction of Inspir ed Oxygen Sepsis Recent Feve r Within 48 Hours Sepsis New/Unexpla ined Change in Men kirby Status Sepsis Action Take n by Nursing Oxygen Flow Rate - Titration Pulse Oximetry Pos t Tiitration 09/16/20 16:31 09/16/20 16:56 09/16/20 16:57 Temperature Temperature Source Pulse Rate 72 87 Pulse Rate [Right Finger] 82 Pulse Rate from Sp O2 Sensor 73 88 Respiratory Rate 29 H 29 H 31 H Respiratory Effort / Characteristics Respiratory Depth Respiratory Patter n Blood Pressure 120/73 Blood Pressure [Ri ght Arm] 120/73 Blood Pressure Kelsey n 80 Blood Pressure Kelsey n [Right Arm] 88 Blood Pressure Pos ition Pulse Oximetry 98 95 95 Oxygen Delivery Me thod [place] Oxygen Flow Rate 10 Fraction of Inspir ed Oxygen Sepsis Recent Feve r Within 48 Hours Sepsis New/Unexpla ined Change in Men kirby Status Sepsis Action Take n by Nursing Oxygen Flow Rate - Titration Pulse Oximetry Pos t Tiitration 09/16/20 17:00 09/16/20 17:01 09/16/20 17:30 Temperature Temperature Source Pulse Rate 76 85 86 Pulse Rate [Right Finger] Pulse Rate from Sp O2 Sensor 76 83 85 Respiratory Rate 34 H 24 39 H Respiratory Effort / Characteristics Respiratory Depth Respiratory Patter n Blood Pressure 122/71 117/68 Blood Pressure [Ri ght Arm] Blood Pressure Kelsey n 80 75 Blood Pressure Kelsey n [Right Arm] Blood Pressure Pos ition Pulse Oximetry 94 94 94 Oxygen Delivery Me thod Oxygen Flow Rate Fraction of Inspir ed Oxygen Sepsis Recent Feve r Within 48 Hours Sepsis New/Unexpla ined Change in Men kirby Status Sepsis Action Take n by Nursing Oxygen Flow Rate - Titration Pulse Oximetry Pos t Tiitration 09/16/20 17:31 Temperature Temperature Source Pulse Rate 75 Pulse Rate [Right Finger] Pulse Rate from Sp O2 Sensor 75 Respiratory Rate 42 H Respiratory Effort / Characteristics Respiratory Depth Respiratory Patter n Blood Pressure Blood Pressure [Ri ght Arm] Blood Pressure Kelsey n Blood Pressure Kelsey n [Right Arm] Blood Pressure Pos ition Pulse Oximetry 95 Oxygen Delivery Me thod Oxygen Flow Rate Fraction of Inspir ed Oxygen Sepsis Recent Feve r Within 48 Hours Sepsis New/Unexpla ined Change in Men kirby Status Sepsis Action Take n by Nursing Oxygen Flow Rate - Titration Pulse Oximetry Pos t Tiitration Physical Exam: VITALS: Blood Pressure 132/77, P 99, R 28, T 38.2C, O2 sat 86% on 6L O2 via NC GENERAL: Ill appearing, labored breathing with accessory muscle use. Non- diaphoretic, well-developed, well-nourished. SKIN: No rashes, erythema, edema, or bruising. Good cap refill. HEAD: Normocephalic atraumatic. EYES: Conjunctivae without injection, sclerae without icterus. NECK: Supple without nuchal rigidity. No lymphadenopathy. LUNGS: Pt. able to speak in full sentences without difficulty. No apparent distress. No retractions or accessory muscle use. MUSCULOSKELETAL: Full range of motion without joint tenderness in all extrem ities. Normal gait. NEURO: Patient was alert and oriented to person place and time. No focal nellie rological deficits. Course Course The patient was seen and evaluated as above. An order was placed for continuous cardiac monitoring. The monitor shows a normal sinus rhythm at a rate of 99 bpm. IV access obtained, labs drawn. Patient medicated with 2 L IV fluids, acetaminophen. Labs reviewed by myself. Imaging performed and reviewed by myself and radiologist as noted. CT imaging ordered. I discussed case with the diagnostic imaging manager. I discussed the case with Dr. Rizvi, [facility] physician. Patient will be admitted to the [facility]ist service. Please see hospitalist dictation regarding ongoing management care of this patient. Administered Medications Discontinued Medications Sodium Chloride (Nss 1000ml) 2,000 mls @ 999 mls/hr IV .[id number] ONE Stop: 09/16/20 13:52 Last Infusion: 09/16/20 16:58 Dose: 0 mls/hr Documented by: [id number] Admin: 09/16/20 12:17 Dose: 999 mls/hr Documented by: [id number] Acetaminophen (Ofirmev) 1,000 mg in 100 mls @ 400 mls/hr IV NOW STA Stop: 09/16/20 12:06 Last Infusion: 09/16/20 16:25 Dose: 0 mls/hr Documented by: [id number] Admin: 09/16/20 12:17 Dose: 400 mls/hr Documented by: [id number] Cefepime HCl (Maxipime) 2,000 mg in 20 mls @ 5 mls/min IV NOW STA; Protocol Stop: 09/16/20 14:00 Last Admin: 09/16/20 14:43 Dose: 5 mls/min Documented by: [id number] Vancomycin HCl 1,500 mg/ (Sodium Chloride) 530 mls @ 200 mls/hr IV TODAY@1415 ONE Stop: 09/16/20 16:53 Last Infusion: 09/16/20 17:56 Dose: 0 mls/hr Documented by: [id number] Admin: 09/16/20 14:44 Dose: 200 mls/hr Documented by: [id number] Azithromycin 500 mg/ Dextrose 255 mls @ 127.5 mls/hr IV TODAY@1445 ONE Stop: 09/16/20 16:44 Last Admin: 09/16/20 16:58 Dose: 127.5 mls/hr Documented by: [id number] Ioversol (Optiray 320 125ml) 120 ml IV ONCE ONE Stop: 09/16/20 15:37 Last Admin: 09/16/20 15:37 Dose: 120 ml Documented by: [id number] Medical Decision Making Differential Diagnosis + acute exacerbation of chronic obstructive airways disease, + asthma with exacerbation, + pulmonary embolism, + COPD, + bronchitis, + pneumothorax, + pneumonia, + pleural effusion, + CHF, + ACS and + aspiration In addition to the above, COVID-19 was considered. Medical Records Attestation: I reviewed the patient's medical records. Home Medications Current Medication List: was personally reviewed by me Laboratory Data Attestation: I reviewed the patient's lab results. Leukocytosis of 33,000. Mild anemia with hemoglobin of 12.1, hematocrit of 36.2. Platelet count of 579,000. Influenza, COVID-19, RSV testing negative. INR mildly elevated 1.2. Renal, hepatic function electrolytes without significant abnormality. Troponin elevated at 0.07. Procalcitonin 1.99. Result diagrams: 09/16/20 11:10 09/16/20 11:10 Lab Results 09/16/20 09/16/20 09/16/20 Range/Units 10:58 10:58 11:10 WBC 33.07 H* (4.8-10.8) K/uL RBC 4.20 L (4.7-6.1) M/uL Hgb 12.1 L (14.0-18.0) g/dL Hct 36.2 L (42-52) % MCV 86.2 (80-100) fL MCH 28.8 (25-34) pg MCHC 33.4 (32-36) g/dL RDW Std Deviation 44.3 (36.4-46.3) fL RDW Coeff of Lawrence 14.1 (11.5-14.5) % Plt Count 579 H (130-400) K/uL MPV 9.5 (7.4-10.4) fL Immature Gran % (Auto) 1.0 % Neut % (Auto) 94.7 % Lymph % (Auto) 2.0 % Concho % (Auto) 2.2 % Eos % (Auto) 0.1 % Baso % (Auto) 0.0 % Neut # (Auto) 31.34 H (1.4-6.5) K/uL Lymph # (Auto) 0.65 L (1.2-3.4) K/uL Concho # (Auto) 0.73 H (0.11-0.59) K/uL Eos # (Auto) 0.02 (0-0.5) K/uL Baso # (Auto) 0.01 (0-0.2) K/uL Immature Gran # (Auto) 0.32 H (0.00-0.02) K/uL Toxic Granulation 1+ PT (9.0-12.0) Seconds INR (0.9-1.1) APTT (21.0-31.0) Seconds PTT Ratio D-Dimer (0-500) ug/L FEU ABG pH (7.35-7.45) ABG pCO2 (35-46) mmHg ABG pO2 (80-95) mmHg ABG HCO3 (19-24) mmol/L ABG O2 Saturation (90-95) % ABG Base Excess (-9-1.8) mEq/L Tuan Test (Pos) Barometric Pressure mm/Hg Oxygen Given Sodium (136-145) mmol/L Potassium (3.5-5.1) mmol/L Chloride (98-107) mmol/L Carbon Dioxide (21-32) mmol/L Anion Gap (3-11) BUN (7-18) mg/dl Creatinine (0.6-1.4) mg/dl Est Cr Clr Drug Dosing ml/min Est GFR ( Amer) Est GFR (Non-Af Amer) BUN/Creatinine Ratio (10-20) Glucose (70-99) mg/dl Lactate (0.4-2.0) mmol/L Calcium (8.5-10.1) mg/dl Magnesium (1.8-2.4) mg/dl Total Bilirubin (0.2-1) mg/dl AST (15-37) U/L ALT (12-78) U/L Alkaline Phosphatase (45-117) U/L Troponin I (0-0.045) ng/ml Total Protein (6.4-8.2) gm/dl Albumin (3.4-5.0) gm/dl Globulin (2.5-4.0) gm/dl Albumin/Globulin Ratio (0.9-2) Procalcitonin (0-0.5) ng/ml Nasal Screen MRSA (PCR) (Negative) Adenovirus (PCR) (NotDetected) B. pertussis DNA (PCR) (NotDetected) B.parapertussis DNA PCR (NotDetected) C. pneumoniae DNA (PCR) (NotDetected) Coronavirus OC43 (PCR) (NotDetected) Coronavirus HKU1 (PCR) (NotDetected) Coronavirus 229E (PCR) (NotDetected) COVID-19 Eval Order [facility]sv at [facility] SARS-CoV-2 (PCR) NEGATIVE (Negative) Coronavirus NL63 (PCR) (NotDetected) Human Metapneumovir PCR (NotDetected) Influenza Type A (PCR) Negative (Neg) Influ A Molecular Assay (Negative) Influenza Type B (PCR) Negative (Neg) Influ B Molecular Assay (Negative) M. pneumoniae (PCR) (NotDetected) Parainfluenza 1 (PCR) (NotDetected) Parainfluenza 2 (PCR) (NotDetected) Parainfluenza 3 (PCR) (NotDetected) Parainfluenza 4 (PCR) (NotDetected) RSV (RT-PCR) Negative (Neg) RSV (PCR) (NotDetected) Entero/Rhino (PCR) (NotDetected) Blood Type Antibody Screen 09/16/20 09/16/20 09/16/20 Range/Units 11:10 11:10 11:10 WBC (4.8-10.8) K/uL RBC (4.7-6.1) M/uL Hgb (14.0-18.0) g/dL Hct (42-52) % MCV (80-100) fL MCH (25-34) pg MCHC (32-36) g/dL RDW Std Deviation (36.4-46.3) fL RDW Coeff of Lawrence (11.5-14.5) % Plt Count (130-400) K/uL MPV (7.4-10.4) fL Immature Gran % (Auto) % Neut % (Auto) % Lymph % (Auto) % Concho % (Auto) % Eos % (Auto) % Baso % (Auto) % Neut # (Auto) (1.4-6.5) K/uL Lymph # (Auto) (1.2-3.4) K/uL Concho # (Auto) (0.11-0.59) K/uL Eos # (Auto) (0-0.5) K/uL Baso # (Auto) (0-0.2) K/uL Immature Gran # (Auto) (0.00-0.02) K/uL Toxic Granulation PT 12.6 H (9.0-12.0) Seconds INR 1.2 H (0.9-1.1) APTT 26.3 (21.0-31.0) Seconds PTT Ratio 0.9 D-Dimer 3090 H* (0-500) ug/L FEU ABG pH (7.35-7.45) ABG pCO2 (35-46) mmHg ABG pO2 (80-95) mmHg ABG HCO3 (19-24) mmol/L ABG O2 Saturation (90-95) % ABG Base Excess (-9-1.8) mEq/L Tuan Test (Pos) Barometric Pressure mm/Hg Oxygen Given Sodium 135 L (136-145) mmol/L Potassium 4.4 (3.5-5.1) mmol/L Chloride 99 (98-107) mmol/L Carbon Dioxide 33 H (21-32) mmol/L Anion Gap 3.0 (3-11) BUN 19 H (7-18) mg/dl Creatinine 0.56 L (0.6-1.4) mg/dl Est Cr Clr Drug Dosing 138.4 ml/min Est GFR ( Amer) 137.8 Est GFR (Non-Af Amer) 118.9 BUN/Creatinine Ratio 33.6 H (10-20) Glucose 104 H (70-99) mg/dl Lactate 1.5 (0.4-2.0) mmol/L Calcium 8.7 (8.5-10.1) mg/dl Magnesium 2.4 (1.8-2.4) mg/dl Total Bilirubin 0.6 (0.2-1) mg/dl AST 63 H (15-37) U/L ALT 39 (12-78) U/L Alkaline Phosphatase 309 H (45-117) U/L Troponin I 0.070 H* (0-0.045) ng/ml Total Protein 6.9 (6.4-8.2) gm/dl Albumin 1.8 L (3.4-5.0) gm/dl Globulin 5.1 H (2.5-4.0) gm/dl Albumin/Globulin Ratio 0.4 L (0.9-2) Procalcitonin (0-0.5) ng/ml Nasal Screen MRSA (PCR) (Negative) Adenovirus (PCR) (NotDetected) B. pertussis DNA (PCR) (NotDetected) B.parapertussis DNA PCR (NotDetected) C. pneumoniae DNA (PCR) (NotDetected) Coronavirus OC43 (PCR) (NotDetected) Coronavirus HKU1 (PCR) (NotDetected) Coronavirus 229E (PCR) (NotDetected) COVID-19 Eval Order SARS-CoV-2 (PCR) (Negative) Coronavirus NL63 (PCR) (NotDetected) Human Metapneumovir PCR (NotDetected) Influenza Type A (PCR) (Neg) Influ A Molecular Assay (Negative) Influenza Type B (PCR) (Neg) Influ B Molecular Assay (Negative) M. pneumoniae (PCR) (NotDetected) Parainfluenza 1 (PCR) (NotDetected) Parainfluenza 2 (PCR) (NotDetected) Parainfluenza 3 (PCR) (NotDetected) Parainfluenza 4 (PCR) (NotDetected) RSV (RT-PCR) (Neg) RSV (PCR) (NotDetected) Entero/Rhino (PCR) (NotDetected) Blood Type Antibody Screen 09/16/20 09/16/20 09/16/20 Range/Units 11:10 12:00 12:30 WBC (4.8-10.8) K/uL RBC (4.7-6.1) M/uL Hgb (14.0-18.0) g/dL Hct (42-52) % MCV (80-100) fL MCH (25-34) pg MCHC (32-36) g/dL RDW Std Deviation (36.4-46.3) fL RDW Coeff of Lawrence (11.5-14.5) % Plt Count (130-400) K/uL MPV (7.4-10.4) fL Immature Gran % (Auto) % Neut % (Auto) % Lymph % (Auto) % [place] % (Auto) % Eos % (Auto) % Baso % (Auto) % Neut # (Auto) (1.4-6.5) K/uL Lymph # (Auto) (1.2-3.4) K/uL Concho # (Auto) (0.11-0.59) K/uL Eos # (Auto) (0-0.5) K/uL Baso # (Auto) (0-0.2) K/uL Immature Gran # (Auto) (0.00-0.02) K/uL Toxic Granulation PT (9.0-12.0) Seconds INR (0.9-1.1) APTT (21.0-31.0) Seconds PTT Ratio D-Dimer (0-500) ug/L FEU ABG pH (7.35-7.45) ABG pCO2 (35-46) mmHg ABG pO2 (80-95) mmHg ABG HCO3 (19-24) mmol/L ABG O2 Saturation (90-95) % ABG Base Excess (-9-1.8) mEq/L Tuan Test (Pos) Barometric Pressure mm/Hg Oxygen Given Sodium (136-145) mmol/L Potassium (3.5-5.1) mmol/L Chloride (98-107) mmol/L Carbon Dioxide (21-32) mmol/L Anion Gap (3-11) BUN (7-18) mg/dl Creatinine (0.6-1.4) mg/dl Est Cr Clr Drug Dosing ml/min Est GFR ( Amer) Est GFR (Non-Af Amer) BUN/Creatinine Ratio (10-20) Glucose (70-99) mg/dl Lactate (0.4-2.0) mmol/L Calcium (8.5-10.1) mg/dl Magnesium (1.8-2.4) mg/dl Total Bilirubin (0.2-1) mg/dl AST (15-37) U/L ALT (12-78) U/L Alkaline Phosphatase (45-117) U/L Troponin I (0-0.045) ng/ml Total Protein (6.4-8.2) gm/dl Albumin (3.4-5.0) gm/dl Globulin (2.5-4.0) gm/dl Albumin/Globulin Ratio (0.9-2) Procalcitonin 1.99 H (0-0.5) ng/ml Nasal Screen MRSA (PCR) (Negative) Adenovirus (PCR) (NotDetected) B. pertussis DNA (PCR) (NotDetected) B.parapertussis DNA PCR (NotDetected) C. pneumoniae DNA (PCR) (NotDetected) Coronavirus OC43 (PCR) (NotDetected) Coronavirus HKU1 (PCR) (NotDetected) Coronavirus 229E (PCR) (NotDetected) COVID-19 Eval Order SARS-CoV-2 (PCR) (Negative) Coronavirus NL63 (PCR) (NotDetected) Human Metapneumovir PCR (NotDetected) Influenza Type A (PCR) (Neg) Influ A Molecular Assay Negative (Negative) Influenza Type B (PCR) (Neg) Influ B Molecular Assay Negative (Negative) M. pneumoniae (PCR) (NotDetected) Parainfluenza 1 (PCR) (NotDetected) Parainfluenza 2 (PCR) (NotDetected) Parainfluenza 3 (PCR) (NotDetected) Parainfluenza 4 (PCR) (NotDetected) RSV (RT-PCR) (Neg) RSV (PCR) (NotDetected) Entero/Rhino (PCR) (NotDetected) Blood Type O Positive Antibody Screen NEGATIVE 09/16/20 09/16/20 09/16/20 Range/Units 14:25 14:40 14:40 WBC (4.8-10.8) K/uL RBC (4.7-6.1) M/uL Hgb (14.0-18.0) g/dL Hct (42-52) % MCV (80-100) fL MCH (25-34) pg MCHC (32-36) g/dL RDW Std Deviation (36.4-46.3) fL RDW Coeff of Lawrence (11.5-14.5) % Plt Count (130-400) K/uL MPV (7.4-10.4) fL Immature Gran % (Auto) % Neut % (Auto) % Lymph % (Auto) % [place] % (Auto) % Eos % (Auto) % Baso % (Auto) % Neut # (Auto) (1.4-6.5) K/uL Lymph # (Auto) (1.2-3.4) K/uL [place] # (Auto) (0.11-0.59) K/uL Eos # (Auto) (0-0.5) K/uL Baso # (Auto) (0-0.2) K/uL Immature Gran # (Auto) (0.00-0.02) K/uL Toxic Granulation PT (9.0-12.0) Seconds INR (0.9-1.1) APTT (21.0-31.0) Seconds PTT Ratio D-Dimer (0-500) ug/L FEU ABG pH 7.39 (7.35-7.45) ABG pCO2 45 (35-46) mmHg ABG pO2 73 L (80-95) mmHg ABG HCO3 27 H (19-24) mmol/L ABG O2 Saturation 93.0 (90-95) % ABG Base Excess 1.5 (-9-1.8) mEq/L Tuan Test Pos (Pos) Barometric Pressure 731.7 mm/Hg Oxygen Given 15L Sodium (136-145) mmol/L Potassium (3.5-5.1) mmol/L Chloride (98-107) mmol/L Carbon Dioxide (21-32) mmol/L Anion Gap (3-11) BUN (7-18) mg/dl Creatinine (0.6-1.4) mg/dl Est Cr Clr Drug Dosing ml/min Est GFR ( Amer) Est GFR (Non-Af Amer) BUN/Creatinine Ratio (10-20) Glucose (70-99) mg/dl Lactate (0.4-2.0) mmol/L Calcium (8.5-10.1) mg/dl Magnesium (1.8-2.4) mg/dl Total Bilirubin (0.2-1) mg/dl AST (15-37) U/L ALT (12-78) U/L Alkaline Phosphatase (45-117) U/L Troponin I (0-0.045) ng/ml Total Protein (6.4-8.2) gm/dl Albumin (3.4-5.0) gm/dl Globulin (2.5-4.0) gm/dl Albumin/Globulin Ratio (0.9-2) Procalcitonin (0-0.5) ng/ml Nasal Screen MRSA (PCR) Negative (Negative) Adenovirus (PCR) Not Detected (NotDetected) B. pertussis DNA (PCR) Not Detected (NotDetected) B.parapertussis DNA PCR Not Detected (NotDetected) C. pneumoniae DNA (PCR) Not Detected (NotDetected) Coronavirus OC43 (PCR) Not Detected (NotDetected) Coronavirus HKU1 (PCR) Not Detected (NotDetected) Coronavirus 229E (PCR) Not Detected (NotDetected) COVID-19 Eval Order SARS-CoV-2 (PCR) Not Detected (Negative) Coronavirus NL63 (PCR) Not Detected (NotDetected) Human Metapneumovir PCR Not Detected (NotDetected) Influenza Type A (PCR) Not Detected (Neg) Influ A Molecular Assay (Negative) Influenza Type B (PCR) Not Detected (Neg) Influ B Molecular Assay (Negative) M. pneumoniae (PCR) Not Detected (NotDetected) Parainfluenza 1 (PCR) Not Detected (NotDetected) Parainfluenza 2 (PCR) Not Detected (NotDetected) Parainfluenza 3 (PCR) Not Detected (NotDetected) Parainfluenza 4 (PCR) Not Detected (NotDetected) RSV (RT-PCR) (Neg) RSV (PCR) Not Detected (NotDetected) Entero/Rhino (PCR) Not Detected (NotDetected) Blood Type Antibody Screen Imaging Data Radiologist's Impression: XR chest 1V portable CLINICAL HISTORY: cough, dyspnea, hypoxia COMPARISON STUDY: 12/05/2017 FINDINGS: The heart is the upper limits of normal in size. Since the prior study, the patient has developed extensive bilateral pulmonary airspace opacities consistent with a multifocal pneumonia. Correlation with Covid 19 testing is recommended. There are no significant pleural effusions.[ IMPRESSION: 1. Interval development of extensive bilateral pulmonary airspace opacities consistent with a multifocal pneumonia. Clinical and radiographic follow-up is recommended. ACT 112: Negative or not required by law. Electronically signed by: Jose Johansen M.D. 09/16/2020 1:[address] ANGIOGRAM OF THE CHEST CLINICAL HISTORY: Shortness of breath. Chest pain. COMPARISON STUDY: X-ray study dated 09/16/2020 TECHNIQUE: Following the IV administration of 120 mL of Optiray-320, CT angiogram of the thorax was performed from the thoracic inlet to the lung bases utilizing the pulmonary embolus protocol. Images are reviewed in the axial, sagittal, and coronal planes. IV contrast was administered without complication. MIP imaging was performed. A dose lowering technique was utilized adhering to the principles of ALARA. CT DOSE: 410.33 mGycm FINDINGS: Within the upper abdomen, there is a 34 mm rim calcified suprarenal mass, likely of adrenal origin. The remainder of the adrenal gland demonstrates bilaterally and thickening. There are enlarged mediastinal and hilar lymph nodes, likely reactive. There was no evidence of thoracic aortic dilatation. There were no pulmonary artery filling defects to indicate acute pulmonary embolism. There are trace pleural effusions There are extensive bilateral areas of groundglass and parenchymal consolidation consistent with a multifocal pneumonia. Correlation with Covid 19 testing is recommended. IMPRESSION: 1. No evidence of acute pulmonary embolism 2. Extensive bilateral pulmonary airspace opacities consistent with a multifocal pneumonia. 3. Mild mediastinal and hilar lymphadenopathy, likely reactive 4. Trace pleural effusions 5. 34 mm left-sided suprarenal mass with rim calcification likely adrenal. ACT 112: Negative or not required by law. Electronically signed by: Jose Johansen M.D. 09/16/2020 4:00 PM ECG Data Attestation: I personally reviewed and interpreted this ECG as follows: Prior ECG tracings: available for review (12/05/2017) Interpretation: Normal sinus rhythm with a ventricular rate of [address] elevation or depression. Nonspecific T wave abnormality. No significant change when compared to previous EKG. Blood Pressure Blood Pressure Findings: Normal blood pressure MDM Narrative This 54-year-old male patient presents to the emergency department today for chest pain, dyspnea, cough, and fever. Symptoms began approximately 1 week ago. No known COVID-19 exposures, however the patient has continued to work and states it has gone around his workplace. He is hypoxic on room air with an O2 saturation in the 70s, per EMS. Patient has been oxygenating in the 90s with an oxygen mask. Initial concern for COVID-19, though COVID-19 testing is negative. He does have a leukocytosis of 30,000 with multifocal infiltrates noted on both chest x-ray and CT imaging of the chest. His troponin is elevated and D-dimer elevated at 3000. Patient will be admitted to the hospitalist service for ongoing management of his symptoms. Please see hospitalist dictation. The chart was completed utilizing [employer] Speech voice recognition software. Grammatical errors, random word insertions, pronoun errors, and incomplete sentences are an occasional consequence of this system due to software limitations, ambient noise, and hardware issues. Any formal questions or concerns about the content, text, or information contained within the body of this dictation should be directly addressed to the provider for clarification. Impression & Plan Acute respiratory failure with hypoxia, Elevated troponin, Sepsis, Multifocal pneumonia Discharge Plan Visit Data Chief Complaint: Shortness of Breath/Dyspnea ED Provider: [facility] ED Midlevel Provider: Brittany Solis Discharge Problem: Acute respiratory failure with hypoxia, Elevated troponin, Sepsis, Multifocal pneumonia Patient Disposition: Admitted As Inpatient Condition: Fair Discharge Instructions Interventions: ED Discharge Assessment Last Done: 09/16/20 17:57 Forms Stand Alone Forms: [facility] Prescriptions Prescriptions: No Action acetaminophen [Tylenol Extra Strength] 500 mg Tablet 500 mg PO Q6H PRN (Reason: Pain) RF: 0 ibuprofen [Advil] 200 mg Tablet 200 mg PO Q6H PRN (Reason: Pain) RF: 0 Referrals Referrals: Florin Feng MD [Primary Care Provider] -
[2020-09-16 12:22] LABS: Albumin Level 1.8 gm/dl (3.4-5.0); BUN Creatinine Ratio 33.6 (10-20); Calcium 8.7 mg/dl (8.5-10.1); Creatinine Clr Calc Pharmacy 138.4 ml/min; Est GFR (African American) 137.8; Est GFR (Non-African American) 118.9; Magnesium 2.4 mg/dl (1.8-2.4); Potassium 4.4 mmol/L (3.5-5.1)
[2020-09-16 12:26] LABS: INR 1.2 (0.9-1.1); Partial Thromboplastin Ratio 0.9; Partial Thromboplastin Time 26.3 Seconds (21.0-31.0); Prothrombin Time 12.6 Seconds (9.0-12.0)
[2020-09-16 12:33] LABS: Basophils # (auto) 0.01 K/uL (0-0.2); Eosinophils # (auto) 0.02 K/uL (0-0.5); Eosinophils % (auto) 0.1 %; Hematocrit (blood only) 36.2 % (42-52); Hemoglobin 12.1 g/dL (14.0-18.0); Immature Granulocytes # (auto) 0.32 K/uL (0.00-0.02); Lymphocytes # (auto) 0.65 K/uL (1.2-3.4); Mean Corpuscular Hemoglobin 28.8 pg (25-34); Mean Corpuscular Hgb Conc 33.4 g/dL (32-36); Mean Corpuscular Volume 86.2 fL (80-100); Mean Platelet Volume 9.5 fL (7.4-10.4); Monocytes # (auto) 0.73 K/uL (0.11-0.59); Monocytes % (auto) 2.2 %; Neutrophils # (auto) 31.34 K/uL (1.4-6.5); Neutrophils % (auto) 94.7 %; Platelet Count 579 K/uL (130-400); RDW Coefficient of Variation 14.1 % (11.5-14.5); RDW Standard Deviation 44.3 fL (36.4-46.3); Toxic Granulation 1+; White Blood Count 33.07 K/uL (4.8-10.8)
[2020-09-16 12:37] LABS: D Dimer 3090 ug/L FEU (0-500)
[2020-09-16 12:38] LABS: Influenza A virus by PCR Negative (Negative); Influenza B virus by PCR Negative (Negative)
[2020-09-16 12:40] LABS: Albumin Globulin Ratio 0.4 (0.9-2); Bilirubin,Total 0.6 mg/dl (0.2-1); Globulin 5.1 gm/dl (2.5-4.0); Total Protein 6.9 gm/dl (6.4-8.2); Troponin I 0.07 ng/ml (0-0.045)
[2020-09-16 13:18] LABS: Influenza A virus by PCR Negative (Neg); Influenza B virus by PCR Negative (Neg); RSV by PCR Negative (Neg); SARS CoV2 RNA(COVID-19) InHosp NEGATIVE (Negative)
--- NOTE | 2020-09-16 13:23 | XRay Report ---
XR chest 1V portable CLINICAL HISTORY: cough, dyspnea, hypoxia COMPARISON STUDY: 12/05/2017 FINDINGS: The heart is the upper limits of normal in size. Since the prior study, the patient has dev eloped extensive bilateral pulmonary airspace opacities consistent with a multifocal pneumonia. Corre lation with Covid 19 testing is recommended. There are no significant pleural effusions.[ IMPRESSION: 1. Interval development of extensive bilateral pulmonary airspace opacities consistent with a multifo maulik pneumonia. Clinical and radiographic follow-up is recommended. ACT 112: Negative or not required by law. Electronically signed by: Jose Johansen M.D. 09/16/2020 1:22 PM
[2020-09-16] MEDS ORDERED: VANCOMYCIN CONSULT ACTIVE PRN (13:57)
[2020-09-16] MEDS ORDERED: CEFEPIME 2,000 MG/20 ML VIAL IV STA (13:57)
[2020-09-16] MEDS ORDERED: VANCOMYCIN HCL 1,500 MG in SODIUM CHLORIDE 0.9% 500 ML IV ONE (14:15)
--- NOTE | 2020-09-16 14:18 | History & Physical Report ---
Date of Service September 16, 2020 Assessment & Plan (1) Sepsis: Source - bacterial multifocal pneumonia Lactate 1.5 NSS 1 L bolus given in ER, he is hemodynamic dynamically stable with normal lactate therefore will defer further IV fluids at present. However, given leukopenia, current pandemic, loss of taste in an otherwise healthy patient will keep in a negative pressure room for 24 hours to see how he responds due to concern for COVID-19 despite negative test. If rapid response to IV antibiotics isolation precautions can be discontinued as unlikely this would occur in COVID-19. (2) Multifocal pneumonia: Vancomycin, cefepime and azithromycin as above. If MRSA swab negative can discontinue vancomycin. If rapidly improving by tomorrow can de-escalate cefepime to ceftriaxone. (3) Acute respiratory failure with hypoxia: Aim O2 sats > 94%. Currently maintaining O2 sats on 10L/min oxymask. (4) Elevated troponin: Suspect mild ischemia secondary to sepsis as above. Will repeat level in a.m. (5) Tobacco use disorder: (6) DVT prophylaxis: Lovenox 40mg SQ daily Admission and Anticipated Discharge Date Admission Date: 09/16/2020 History of Present Illness Chief Complaint: Shortness of breath, hypoxia Primary Care Provider: Florin Feng MD Oskar Kaba is a 54-year-old male with tobacco use disorder who presents to the ER via EMS with hypoxia, shortness of breath and fevers. He reports having symptoms for the past 6 days with increasing shortness of breath (especially on exertion), occasional cough (few blood-tinged), loss of appetite, loss of taste. He denies any headache, abdominal pain, diarrhea, known COVID-19 exposure. O2 sats 70% on arrival of EMS. Mild upper chest pain on deep inspiration, sharp, no radiation, no worse on exertion. No orthopnea, PND, claudication, palpitations. In the ER he was febrile with a temperature of 38.2 C, tachypneic, hypoxic. CXR concerning for multifocal PNA. He was referred to medicine Allergies Allergy/AdvReac Type Severity Reaction Status Date / Time No Known Allergies Allergy Unverified 09/16/20 12:35 Home Medications Medication Instructions Recorded Confirmed Type acetaminophen [Tylenol Extra 500 mg PO Q6H PRN 09/16/20 09/16/20 History Strength] ibuprofen [Advil] 200 mg PO Q6H PRN 12/11/20 12/11/20 History Past Med/Surg History Medical History No significant past medical history Social History Smoking Status: Former smoker Hx Alcohol Use: Yes Alcohol type: beer Hx Substance Use: No Preferred Language: Ghanaian Communication Ability: Effective 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 President 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: No Beliefs That Will Affect Care: None Current Living Situation: Significant Other Other Information That Helps Us Care for You: No Feels Safe at Home: Yes Safety Concerns: Feels Safe At This Time Assistive Devices: None Review of Systems Review of Systems: All systems reviewed & are unremarkable except as noted in HPI & below Physical Exam Constitutional: well developed; + not well nourished and no acute distress Eyes: + anicteric sclerae; normal pupil size Respiratory: + labored breathing, + retractions, + uses accessory muscles, able to speak in complete sentences and + tachypneic; no cough, expiratory phase not prolonged and no stridor Auscultation: + crackles (Bilateral laterally and posteriorly to mid zone on inspiration); no diminished lung sounds, no rhonchi and no wheezes Cardiovascular: Rate/Rhythm: regular rhythm and + tachycardic Heart Sounds: no murmur Vessels: no JVD Extremities: normal capillary refill; no calf tenderness and no pedal edema Gastrointestinal (Abdomen): normal bowel sounds, soft, nontender, no hepatosplenomegaly Musculoskeletal: no cyanosis or clubbing, extremities motor strength 5/5 Skin: no rashes, warm and dry (No areas of cellulitis) Neurologic: moves all extremities and awake; no focal motor deficits and not confused Speech / Cognition: normal speech Motor/Sensory: no tremor Cranial Nerves: normal facial strength Psychiatric: A+Ox3, euthymic affect Genitourinary: no CVA tenderness Results & Data Results & Data ([facility]) Vital Signs (Past 12 Hours) Vital Signs Temp Pulse Resp BP Pulse Ox 09/16/20 12:18 86 L 09/16/20 12:01 80 43 H 89 L 09/16/20 12:00 95 H 30 H 120/70 87 L 09/16/20 11:31 90 49 H 09/16/20 11:30 86 39 H 123/68 09/16/20 11:12 38.2 C H 99 H 18 132/77 94 09/16/20 11:01 100 H 35 H 88 L 09/16/20 11:00 103 H 34 H 129/80 90 09/16/20 10:55 100 H 38 H 91 09/16/20 10:53 110 H 42 H 132/77 91 Diagnostic Findings XR chest 1V portable IMPRESSION: 1. Interval development of extensive bilateral pulmonary airspace opacities consistent with a multifocal pneumonia. Clinical and radiographic follow-up is recommended. CT ANGIOGRAM OF THE CHEST IMPRESSION: 1. No evidence of acute pulmonary embolism 2. Extensive bilateral pulmonary airspace opacities consistent with a multifocal pneumonia. 3. Mild mediastinal and hilar lymphadenopathy, likely reactive 4. Trace pleural effusions 5. 34 mm left-sided suprarenal mass with rim calcification likely adrenal. Medications Administered ER medications given: NSS 2 L ECG Indication: SOB/dyspnea Rate (beats per minute): 100 Rhythm: normal sinus Comparison ECG Date: from (12/05/2017) Change: no significant change Code Status & VTE Plan Code Status Full VTE Prophylaxis Plan VTE Prophylaxis will be ordered: Yes PG Care Time/CCT Total # of Minutes Spent Total Time Spent with Patient: Total time spent is greater than 50% in coordination of care (as documented) at patient's floor/unit and/or counseling patient: Coding Level of Care Code 86948 Initial Inpt Care Lvl 3 Diagnoses Sepsis A41.9 Multifocal pneumonia J18.9 Acute respiratory failure with hypoxia J96.01 Elevated troponin R77.8 Tobacco use disorder F17.200 DVT prophylaxis Z29.9
[2020-09-16 14:35] LABS: Allen Test Pos (Pos); Base Excess ABG 1.5 mEq/L (-9-1.8); HCO3 ABG 27 mmol/L (19-24); PCO2 ABG 45 mmHg (35-46); PO2 ABG 73 mmHg (80-95); pH ABG 7.39 (7.35-7.45)
[2020-09-16] MEDS ORDERED: AZITHROMYCIN 500 MG in DEXTROSE 5% 250 ML IV ONE (14:45)
--- NOTE | 2020-09-16 15:04 | Electrocardiogram Report ---
Test Reason : Blood Pressure : / mmHG Vent. Rate : 100 BPM Atrial Rate : 100 BPM P-R Int : 130 ms QRS Dur : 106 ms QT Int : 318 ms P-R-T Axes : 039 -44 074 degrees QTc Int : 410 ms Normal sinus rhythm Left axis deviation Nonspecific T wave abnormality Abnormal ECG When compared with ECG of 05-DEC-2017 19:09, No significant change was found Confirmed by Gm Yañez ([id number]) on 09/16/2020 3:03:42 PM Referred By: Confirmed By:mG Yañez
[2020-09-16] MEDS ORDERED: OPTIRAY 320 125ml IV ONE (15:36)
--- NOTE | 2020-09-16 16:01 | CT Scan Report ---
CT ANGIOGRAM OF THE CHEST CLINICAL HISTORY: Shortness of breath. Chest pain. COMPARISON STUDY: X-ray study dated 09/16/2020 TECHNIQUE: Following the IV administration of 120 mL of Optiray-320, CT angiogram of the thorax was p erformed from the thoracic inlet to the lung bases utilizing the pulmonary embolus protocol. Images a re reviewed in the axial, sagittal, and coronal planes. IV contrast was administered without complica tion. MIP imaging was performed. A dose lowering technique was utilized adhering to the principles o f ALARA. CT DOSE: 410.33 mGycm FINDINGS: Within the upper abdomen, there is a 34 mm rim calcified suprarenal mass, likely of adrenal origin. T he remainder of the adrenal gland demonstrates bilaterally and thickening. There are enlarged mediastinal and hilar lymph nodes, likely reactive. There was no evidence of thoracic aortic dilatation. There were no pulmonary artery filling defects to indicate acute pulmonary embolism. There are trace pleural effusions There are extensive bilateral areas of groundglass and parenchymal consolidation consistent with a mu ltifocal pneumonia. Correlation with Covid 19 testing is recommended. IMPRESSION: 1. No evidence of acute pulmonary embolism 2. Extensive bilateral pulmonary airspace opacities consistent with a multifocal pneumonia. 3. Mild mediastinal and hilar lymphadenopathy, likely reactive 4. Trace pleural effusions 5. 34 mm left-sided suprarenal mass with rim calcification likely adrenal. ACT 112: Negative or not required by law. Electronically signed by: Jose Johansen M.D. 09/16/2020 4:00 PM
[2020-09-16 16:08] LABS: Adenovirus PCR Not Detected (NotDetected); Bordetella parapertussis PCR Not Detected (NotDetected); Bordetella pertussis PCR Not Detected (NotDetected); Chlamydia pneumoniae PCR Not Detected (NotDetected); Coronavirus 229E PCR Not Detected (NotDetected); Coronavirus CoV-2 (COVID19)PCR Not Detected (NotDetected); Coronavirus HKU1 PCR Not Detected (NotDetected); Coronavirus NL63 PCR Not Detected (NotDetected); Coronavirus OC43PCR Not Detected (NotDetected); Human Metapneumovirus PCR Not Detected (NotDetected); Influenza A PCR Not Detected (NotDetected); Influenza B PCR Not Detected (NotDetected); Mycoplasma pneumoniae PCR Not Detected (NotDetected); Parainfluenza Virus 1 PCR Not Detected (NotDetected); Parainfluenza Virus 2 PCR Not Detected (NotDetected); Parainfluenza Virus 3 PCR Not Detected (NotDetected); Parainfluenza Virus 4 PCR Not Detected (NotDetected); Respiratory Syncytial VirusPCR Not Detected (NotDetected); Rhinovirus/Enterovirus PCR Not Detected (NotDetected)
[2020-09-16] MEDS ORDERED: CEFEPIME CONSULT ACTIVE PRN (19:21)
[2020-09-16] MEDS ORDERED: ONDANSETRON INJ 2 MG/ML 2 ML VIAL IV PRN (19:21)
[2020-09-16] MEDS ORDERED: POLYETHYLENE (MIRALAX) 17 GM PACK PO PRN (19:21)
[2020-09-16] MEDS ORDERED: ACETAMINOPHEN 325 MG TAB PO PRN (19:21)
[2020-09-16] MEDS: CEFEPIME 2,000 MG in SYRINGE 0 ML IV SCH (21:01)
[2020-09-16] MEDS: ENOXAPARIN INJ 40 MG/0.4 ML SYR SQ SCH (21:01)
[2020-09-17] MEDS: CEFEPIME 2,000 MG in SYRINGE 0 ML IV SCH ×3 (05:37→20:37)
[2020-09-17 08:38] LABS: Hematocrit (blood only) 33.3 % (42-52); Mean Corpuscular Hemoglobin 28.5 pg (25-34); Mean Corpuscular Volume 86.3 fL (80-100); Platelet Count 570 K/uL (130-400); RDW Coefficient of Variation 14.1 % (11.5-14.5); RDW Standard Deviation 44.1 fL (36.4-46.3); Red Blood Count 3.86 M/uL (4.7-6.1); White Blood Count 24.34 K/uL (4.8-10.8)
[2020-09-17 09:21] LABS: Basophils # (auto) 0.03 K/uL (0-0.2); Basophils % (auto) 0.1 %; Eosinophils # (auto) 0.09 K/uL (0-0.5); Eosinophils % (auto) 0.4 %; Immature Granulocytes # (auto) 0.23 K/uL (0.00-0.02); Immature Granulocytes % (auto) 0.9 %; Lymphocytes # (auto) 0.79 K/uL (1.2-3.4); Lymphocytes % (auto) 3.2 %; Monocytes # (auto) 0.88 K/uL (0.11-0.59); Monocytes % (auto) 3.6 %; Neutrophils # (auto) 22.32 K/uL (1.4-6.5); Neutrophils % (auto) 91.8 %; Toxic Granulation 1+
[2020-09-17 09:27] LABS: BUN Creatinine Ratio 26.2 (10-20); Calcium 8.4 mg/dl (8.5-10.1); Creatinine Clr Calc Pharmacy 136.9 ml/min; Est GFR (African American) 138.9; Est GFR (Non-African American) 119.8; Potassium 3.6 mmol/L (3.5-5.1); Troponin I 0.019 ng/ml (0-0.045)
[2020-09-17] MEDS: AZITHROMYCIN 250 MG in DEXTROSE 5% 250 ML IV SCH (16:39)
--- NOTE | 2020-09-17 16:49 | Hospitalist Progress Note ---
Date of Service September 17, 2020 Assessment & Plan (1) Sepsis: Source - bacterial multifocal pneumonia, CT has appearance of bacterial pneumonia, procalcitonin elevated, COVID negative remove from airborne isolation continue broad spectrum antibiotics NSS + 20k at 80cc/hr as PO intake is not back to normal and likely is dry BP is stable, Cr stable, lactic acid < 2, no signs of shock has evidence of organ failure with acute hypoxic respiratory failure, would qualify as severe sepsis keep on PCU (2) Multifocal pneumonia: Vancomycin, cefepime and azithromycin, continue for 2-3 days then de- escalate follow up on blood cultures (3) Acute respiratory failure with hypoxia: Aim O2 sats > 94%. Currently maintaining O2 sats on 10L/min oxymask for over 24 hours not getting worse today, no increased work of breathing (4) Elevated troponin: Suspect mild ischemia secondary to sepsis as above no concerns for ACS, no further work up (5) Tobacco use disorder: (6) DVT prophylaxis: Lovenox 40mg SQ daily Admission and Anticipated Discharge Date Admission Date: September 16, 2020 Subjective patient says he feels a great deal better since yesterday he is breathing easier, although still needing 10L mask, no distress he ate something this morning, first time in a few days he has had an appetite states he has been sick for at least a week, sleeping all day, poor intake denies fevers, night sweats reviewed chart reviewed labs, WBC improved to 24 from 33k Cr is 0.55 and electrolytes stable I reviewed his CT chest personally, has the appearance of multifocal pneumonia, looks more like bacterial infection procalcitonin was elevated on admission told RN we can d/c isolation since he feels better, move to another room Review of Systems Review of Systems: All systems reviewed & are unremarkable except as noted in Subjective Physical Exam Constitutional: well developed, + ill appearing, + thin and + frail appearing; no acute distress Neck: trachea midline, no thyromegaly Respiratory: + cough and + tachypneic; no respiratory distress, no labored breathing and does not use accessory muscles Auscultation: + crackles (biba silar) and + rhonchi (bilaterally); no rales and no wheezes Cardiovascular: RRR, no murmur, no edema Gastrointestinal (Abdomen): normal bowel sounds, soft, nontender, no hepatosplenomegaly Musculoskeletal: no cyanosis or clubbing, extremities motor strength 5/5 Skin: no rashes, warm and dry Neurologic: patellar DTR's 2+ bilat, sensation intact and PERRL, EOMI, accommodation nl, no face palsy, no dysarthria Psychiatric: A+Ox3, euthymic affect Lymphatic: no cervical or axillary lymphadenopathy Results & Data Results & Data ([facility]) Vital Signs (Past 12 Hours) Vital Signs Temp Pulse Pulse Pulse Resp BP Pulse Ox 09/17/20 15:35 37.2 C 70 20 116/69 90 09/17/20 15:18 69 09/17/20 12:13 82 09/17/20 11:30 36.5 C 71 18 104/64 90 09/17/20 09:49 84 L 09/17/20 09:48 90 09/17/20 07:43 36.8 C 83 22 121/74 91 09/17/20 07:07 72 Laboratory Results Laboratory Results - last 24 hr 09/17/20 09/17/20 08:16 08:16 WBC 24.34 H RBC 3.86 L Hgb 11.0 L Hct 33.3 L MCV 86.3 MCH 28.5 MCHC 33.0 RDW Std Deviation 44.1 RDW Coeff of [place] 14.1 Plt Count 570 H MPV 9.0 Immature Gran % (Auto) 0.9 Neut % (Auto) 91.8 Lymph % (Auto) 3.2 [place] % (Auto) 3.6 Eos % (Auto) 0.4 Baso % (Auto) 0.1 Neut # (Auto) 22.32 H Lymph # (Auto) 0.79 L [place] # (Auto) 0.88 H Eos # (Auto) 0.09 Baso # (Auto) 0.03 Immature Gran # (Auto) 0.23 H Toxic Granulation 1+ Sodium 136 Potassium 3.6 D Chloride 101 Carbon Dioxide 29 Anion Gap 6.0 BUN 15 Creatinine 0.55 L Est Cr Clr Drug Dosing 136.9 Est GFR ( Amer) 138.9 Est GFR (Non-Af Amer) 119.8 BUN/Creatinine Ratio 26.2 H Glucose 145 H Calcium 8.4 L Troponin I 0.019 Medications Administered Current Inpatient Medications Acetaminophen (Acetaminophen 325 Mg Tab) 650 mg PO Q4H PRN PRN Reason: Pain or Fever Stop: 10/16/20 19:20 Last Admin: 09/17/20 05:40 Dose: 650 mg Documented by: Enoxaparin Sodium (Enoxaparin Inj 40 Mg/0.4 Ml Syr) 40 mg SQ QPM CONG Stop: 10/16/20 20:59 Last Admin: 09/16/20 21:01 Dose: 40 mg Documented by: Azithromycin 250 mg/ Dextrose 252.5 mls @ 125 mls/hr IV DAILY@1600 CONG Stop: 09/24/20 15:59 Last Admin: 09/17/20 16:39 Dose: 125 mls/hr Documented by: Cefepime HCl 2,000 mg/ Syringe 20 mls @ 5 mls/min IV Q8H CONG; Protocol Stop: 09/23/20 20:59 Last Admin: 09/17/20 13:10 Dose: 5 mls/min Documented by: Miscellaneous Information (Cefepime Consult Active) 1 ea N/A UD PRN PRN Reason: Consult Stop: 10/16/20 19:20 Ondansetron HCl (Ondansetron Inj 2 Mg/Ml 2 Ml Vial) 4 mg IV Q6H PRN PRN Reason: Nausea Stop: 10/16/20 19:20 Polyethylene Glycol (Polyethylene (Miralax) 17 Gm Pack) 17 gm PO DAILY PRN PRN Reason: Constipation Stop: 10/16/20 19:20 PG Care Time/CCT Total # of Minutes Spent Total Time Spent with Patient: Total time spent is greater than 50% in coordination of care (as documented) at patient's floor/unit and/or counseling patient: Coding Level of Care Code 26129 Subseq Hosp Care Lvl 3 Diagnoses Sepsis A41.9 Sepsis acute organ dysfunction status: unspecified Sepsis type: sepsis due to unspecified organism Multifocal pneumonia J18.9 Acute respiratory failure with hypoxia J96.01 Elevated troponin R77.8 Tobacco use disorder F17.200 DVT prophylaxis Z29.9 (1) Sepsis Sepsis acute organ dysfunction status: unspecified Sepsis type: sepsis due to unspecified organism Qualified Code(s): A41.9 - Sepsis, unspecified organism
[2020-09-17] MEDS: NSS + 20MEQ KCL 20 MEQ/1,000 ML BAG IV SCH (19:19)
--- NOTE | 2020-09-17 19:38 | Communication Note ---
Date of Service: September 17, 2020 Worsening oxygen status with hypoxia in the 80s. Clinical staff notes appears to be worse from day time. Staff concerned of COVID in setting of negative test yesterday and requesting retest. This is reasonable and appropriate in this setting incase he would require intubation. Will place on BiPAP and follow clinically. Resident Activity Tracking Resident Involvement: Resident Care Provided Care Provided: Adult Hospital Medicine
[2020-09-17 20:37] LABS: Influenza A virus by PCR Negative (Neg); Influenza B virus by PCR Negative (Neg); RSV by PCR Negative (Neg); SARS CoV2 RNA(COVID-19) InHosp NEGATIVE (Negative)
[2020-09-17] MEDS: ENOXAPARIN INJ 40 MG/0.4 ML SYR SQ SCH (20:37)
[2020-09-17 23:12] LABS: Appearance Urine Clear (Clear); Bacteria Urine Automated Negative (Negative); Bilirubin Urine Negative (Negative); Blood Urine Negative (Negative); Color Urine Dark Yellow; Glucose Urine UA Negative (Negative); Ketones Urine Negative (Negative); Leukocyte Esterase Urine Negative (Negative); Nitrite Urine Negative (Negative); Protein Urine 1+ (Negative); RBC Urine Automated 0-4 /hpf (0-4); Specific Gravity Urine 1.032 (1.000-1.030); Urobilinogen Urine Negative (Negative); pH Urine 5.5 (4.5-7.5)
[2020-09-18] MEDS: NSS + 20MEQ KCL 20 MEQ/1,000 ML BAG IV SCH ×2 (05:53→18:08)
[2020-09-18] MEDS: CEFEPIME 2,000 MG in SYRINGE 0 ML IV SCH ×3 (05:54→20:35)
--- NOTE | 2020-09-18 11:52 | Hospitalist Progress Note ---
Date of Service September 18, 2020 Assessment & Plan (1) Sepsis: Source - bacterial multifocal pneumonia, CT has appearance of bacterial pneumonia, procalcitonin elevated, COVID, flu, RSV negative on admission remove from airborne isolation continue broad spectrum antibiotics IVF BP is stable, Cr stable, lactic acid < 2, no signs of shock has evidence of organ failure with acute hypoxic respiratory failure, would qualify as severe sepsis keep on PCU Pt with acute respiratory failure overnight Repeat COVID, flu, RSV neg On admission, CXR and CTA noted for extensive b/l multifocal PNA, neg for PE Blood and sputum cx pending Procal elevated WBC increased, but improving today Trop at 0.07 on admission, now at 0.019 informed nursing that she has concerns about pt ingesting opioids via nasal inhalation UDS ordered, however pt has been admitted since 09/16 and was very ill COUNSEL, also has had aggressive IVF--all of this may lead to neg UDS t/c that withdrawal sx could make respiratory status worse, pt denies use and no prior rx issues (2) Multifocal pneumonia: Vancomycin, cefepime and azithromycin, continue for 2-3 days then de- escalate follow up on blood cultures (3) Acute respiratory failure with hypoxia: Aim O2 sats > 94%. Currently maintaining O2 sats on 10L/min oxymask for over 24 hours (4) Elevated troponin: Suspect mild ischemia secondary to sepsis as above no concerns for ACS, no further work up (5) Tobacco use disorder: (6) DVT prophylaxis: Lovenox 40mg SQ daily Admission and Anticipated Discharge Date Admission Date: September 16, 2020 Subjective Pt states his SOB is better, despite increased O2 recs overnight. This has been titrated down this AM somewhat. Tolerating PO. Pt denies fever, chest pain, abd pain, n/v/c/d, LE pain or swelling. Per nursing, pt's girlfriend reported that she has seen pt "snorting something" at home, but he covers this up when he sees her. He denies use of opioids or other drugs. She states when he gets home from work he "seems high". Pt has no prescribed opioids usually. Review of Systems Review of Systems: Pertinent positives and negatives reviewed in HPI--all others negative Physical Exam Constitutional: WD/WN, vitals as above Eyes: normal visual fam by confrontation and + anicteric sclerae Neck: normal visual inspection and trachea midline Respiratory: no labored breathing Auscultation: + crackles; + lungs not clear to auscultation and no wheezes Cardiovascular: Rate/Rhythm: regular rate and regular rhythm Gastrointestinal (Abdomen): Inspection/Auscultation: abdomen not distended Percussion/Palpation: abdomen soft; abdomen nontender Musculoskeletal: Head/Neck/Chest: normocephalic and head atraumatic negative for edema, peripheral pulses intact Skin: no rashes, warm and dry Neurologic: awake; not confused Speech / Cognition: normal speech Psychiatric: A+Ox3, euthymic affect Results & Data Results & Data ([facility]) Vital Signs (Past 12 Hours) Vital Signs Temp Pulse Pulse Resp BP Pulse Ox 09/18/20 11:10 74 20 89 L 09/18/20 09:00 87 09/18/20 08:06 36.8 C 80 24 118/65 89 L 09/18/20 07:21 69 20 97 09/18/20 05:35 67 18 96 09/18/20 04:33 37 C 79 20 119/74 93 09/18/20 03:05 81 18 90 09/18/20 01:11 60 18 95 PG Care Time/CCT Total # of Minutes Spent Total Time Spent with Patient: Total time spent is greater than 50% in coordination of care (as documented) at patient's floor/unit and/or counseling patient: Coding Level of Care Code 53226 Subseq Hosp Care Lvl 3 Diagnoses Sepsis A41.9 Sepsis acute organ dysfunction status: unspecified Sepsis type: sepsis due to unspecified organism Multifocal pneumonia J18.9 Acute respiratory failure with hypoxia J96.01 Elevated troponin R77.8 Tobacco use disorder F17.200 DVT prophylaxis Z29.9 (1) Sepsis Sepsis acute organ dysfunction status: unspecified Sepsis type: sepsis due to unspecified organism Qualified Code(s): A41.9 - Sepsis, unspecified organism
[2020-09-18] MEDS: AZITHROMYCIN 250 MG in DEXTROSE 5% 250 ML IV SCH (16:10)
[2020-09-18 16:49] LABS: Amphetamines+Metham, Urine Neg (Neg); Barbiturates, Urine Neg (Neg); Benzodiazepine, Urine Neg (Neg); Cocaine, Urine Neg (Neg); MDMA (Ecstacy), Urine Neg (Neg); Methadone, Urine Neg (Neg); Opiate, Urine Neg (Neg); Phencyclidine, Urine Neg (Neg)
[2020-09-18] MEDS: ENOXAPARIN INJ 40 MG/0.4 ML SYR SQ SCH (20:35)
[2020-09-19] MEDS: NSS + 20MEQ KCL 20 MEQ/1,000 ML BAG IV SCH ×2 (05:37→20:02)
[2020-09-19] MEDS: CEFEPIME 2,000 MG in SYRINGE 0 ML IV SCH (05:37)
[2020-09-19 08:29] LABS: Creatinine Clr Calc Pharmacy 192.1 ml/min; Est GFR (African American) > 150.0
--- NOTE | 2020-09-19 10:14 | XRay Report ---
XR chest 1V portable CLINICAL HISTORY: multifocal PNA, worsening hypoxia COMPARISON STUDY: Chest radiograph and chest CT September 16, 2020. FINDINGS: Extensive bilateral consolidation has increased since prior chest CT. There are trace bilat eral pleural effusions. There is no pneumothorax. Cardiomediastinal silhouette is stable. There is no evidence for pulmonary edema. IMPRESSION: Progression of extensive bilateral consolidation consistent with multifocal pneumonia. ACT 112: Negative or not required by law. Electronically signed by: Fabricio Healy M.D. 09/19/2020 10:13 AM
--- NOTE | 2020-09-19 11:00 | Hospitalist Progress Note ---
Date of Service September 19, 2020 Assessment & Plan (1) Sepsis: Source - bacterial multifocal pneumonia, CT has appearance of bacterial pneumonia, procalcitonin elevated, COVID, flu, RSV negative on admission repeated 09/17 continues to be negative remove from airborne isolation Cefepime and azithromycin was briefly on vancomycin this was stopped as mrsa screen was negative Moderate hypoxic respiratory failure will keep on PCU On admission, CXR and CTA noted for extensive b/l multifocal PNA, neg for PE Blood and sputum cx pending Procal elevated WBC increased, but improving Trop at 0.07 on admission, trending downward according to previous hospitalist, informed nursing that she has concerns about pt ingesting opioids via nasal inhalation UDS ordered, resulted neg UDS t/c that withdrawal sx could make respiratory status worse, pt denies use and no prior rx issues (2) Multifocal pneumonia: , cefepime and azithromycin, continue dependent appearance may suggest aspiration pneumonia follow up on blood cultures since significant hypoxia will involve pulmomary medicine (3) Acute respiratory failure with hypoxia: Aim O2 sats > 94%. Currently maintaining O2 sats on Hi flow oxygen (4) Elevated troponin: Suspect mild ischemia secondary to sepsis as above no concerns for ACS, no further work up (5) Tobacco use disorder: (6) DVT prophylaxis: Lovenox 40mg SQ daily Admission and Anticipated Discharge Date Admission Date: September 16, 2020 Subjective She states he is feeling much better over the last 2 days despite still being on high flow oxygen. He has been minimally to nonproductive cough. He overall feels weak and tired. He is had no bowel movements. Review of Systems Review of Systems: Moderate respiratory distress and fatigue no headache, blurry or double vision no speech or swallowing issues no chest pain, pressure or palpitations Complains of shortness of breath at rest worse with exertion. Nonproductive cough no abdominal pain, nausea or vomiting, has complaints of constipation no dysuria, hematuria or frequency no focal joint pain or swelling no back pain, CVA tenderness or radicular pain no bruising, bleeding or rashes no focal signs of weakness or numbness or altered sensation no complaints of anxiety or depression.. Physical Exam Physical Exam: The patient appeared thin about his usual condition for age Vital signs as documented. Head exam is normocephalic atraumatic no scleral icterus Neck is without JVD, thyromegaly, or carotid bruits. Lungs decreased breath sounds at bilateral bases coarse rhonchi heard bilaterally Cardiac exam, Rhythm is regular.. No murmurs, rubs or gallops. Abdominal exam reveals normal bowel sounds, soft non tender, no masses Extremities are nonedematous and both pedal pulses are present Neurologic exam is alert and oriented, no focal loss of strength or sensation Skin is without bruises or rashes Psychologically is without concerns for anxiety or depression. Results & Data Results & Data ([facility]) Vital Signs (Past 12 Hours) Vital Signs Temp Pulse Pulse Resp BP Pulse Ox 09/19/20 07:30 73 20 92 09/19/20 07:11 98.6 F 73 18 125/73 88 L 09/19/20 03:48 98.8 F 78 22 116/64 92 09/19/20 02:29 62 18 94 09/19/20 00:46 66 16 91 09/19/20 00:27 98.6 F 77 22 121/68 86 L PG Care Time/CCT Total # of Minutes Spent Total Time Spent with Patient: Total time spent is greater than 50% in coordination of care (as documented) at patient's floor/unit and/or counseling patient: Coding Level of Care Code 50347 Subseq Hosp Care Lvl 3 Diagnoses Sepsis A41.9 Sepsis acute organ dysfunction status: unspecified Sepsis type: sepsis due to unspecified organism Multifocal pneumonia J18.9 Acute respiratory failure with hypoxia J96.01 Elevated troponin R77.8 Tobacco use disorder F17.200 DVT prophylaxis Z29.9 (1) Sepsis Sepsis acute organ dysfunction status: unspecified Sepsis type: sepsis due to unspecified organism Qualified Code(s): A41.9 - Sepsis, unspecified organism
[2020-09-19] MEDS ORDERED: PIPERACILL/TAZOBAC CONSULT ACTIVE PRN ×2 (11:01→17:59)
[2020-09-19] MEDS ORDERED: PIPERACILLIN/TAZOBACTAM 4.5 GM in DEXTROSE 5% 100 ML IV ONE (12:00)
[2020-09-19] MEDS ORDERED: CEFEPIME 2,000 MG in SYRINGE 0 ML IV SCH (14:00)
--- NOTE | 2020-09-19 17:57 | Pulmonary Consultation ---
Date of Consultation September 19, 2020 Assessment & Plan (1) Multifocal pneumonia: (2) Acute respiratory failure with hypoxia: Impression: 54-year-old male with prior history of tobacco abuse presenting now with bilateral lower lobe dense consolidation and hypoxemic respiratory failure. His chest x-ray demonstrates some mild progression. He does have poor dentition and concern for potential occult aspiration would be high on the differential. Cannot exclude noninfectious etiologies but given the patient's elevated procalcitonin, leukocytosis, and fever, I think treating him for pneumonia initially and following him clinically and radiographically is reasonable. Recommendations: 1. Probable aspiration pneumonia: Given the patient's poor dentition, anaerobic coverage may be warranted. We will discontinue the cefepime and transition him to Zosyn. Can complete the course of a azithromycin. 2. We will check a Legionella urinary antigen. 3. We will check follow-up procalcitonin and CBC in the morning to ensure they are trending in the appropriate direction. 4. Aggressive pulmonary toilet including incentive spirometry and flutter valve recommended. Out of bed to chair as much as possible. 5. Hypoxemia: Continue supplemental oxygen titrated to keep saturations at or above 88%. 6. No indication for bronchoscopy currently unless the patient fails antimicrobial therapy. We will continue to follow with you. Please contact us if we can be of additional questions History of Present Illness Attending Physician: German Rai MD History of Present Illness Asked by hospitalist to evaluate this patient with multifocal airspace opacity, and hypoxemic respiratory failure in the setting of fevers and leukocytosis. History is obtained from discussion with the patient as well as review the electronic medical record and discussion with the hospitalist. Patient is a 54-year-old male with a remote history of tobacco abuse who con tinues to use chewing tobacco. He presented to the emergency room with 6 days of shortness of breath and subjective fevers and chills. CT scan demonstrated dense dependent bilateral lower lobe consolidation with small pleural effusions. He was tested for Covid repeatedly and all these tests were negative. He was admitted with a diagnosis of multifocal bacterial pneumonia and initially placed on antibiotics in the form of cefepime, vancomycin, and a azithromycin. His white count decreased but he is remained persistently hypoxemic and there was concerned about other potential etiologies which prompted a pulmonary consultation. The patient does not report any hemoptysis or chest discomfort. 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 He has no significant occupational or environmental exposures. No pets at home. He denies any history of e-cigarette use or vaping. No ill contacts that he is aware of. He does have poor dentition but cannot recall any episodes of overt aspiration, loss of consciousness, recent dental work, or seizure disorder. 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 No additions or deletions Physical Exam Constitutional: WD/WN, vitals as above Neck: trachea midline, no thyromegaly Respiratory: normal respiratory effort Decreased breath sounds at the bilateral lung bases with crackles bilaterally Cardiovascular: RRR, no murmur, no edema Gastrointestinal (Abdomen): normal bowel sounds, soft, nontender, no hepatosplenomegaly Musculoskeletal: Extremities: extremities normal to inspection Skin: no rashes, warm and dry Neurologic: Nonfocal exam Lymphatic: no cervical lymphadenopathy Results & Data Results & Data ([facility]) Vital Signs (Past 12 Hours) Vital Signs Temp Pulse Pulse Resp BP Pulse Ox 09/19/20 15:44 77 20 90 09/19/20 15:23 37.4 C 80 19 125/68 92 09/19/20 11:34 81 20 90 09/19/20 07:30 73 20 92 09/19/20 07:11 37.0 C 73 18 125/73 88 L Laboratory Results 09/17/20 08:16 09/19/20 07:20 Procalcitonin 1.99 Diagnostic Findings Initial imaging studies were independently reviewed. Chest x-ray from 09/16/20 was independently reviewed demonstrating basilar airspace opacities which was confirmed on the CT scan from 09/16/2020. No evidence of filling defects concerning for PE identified. Small bilateral pleural effusions with reactive adenopathy. Chest x-ray from today demonstrated some fleeting infiltrates with partial clearing of the left lung base however the left midlung opacities were more co nsolidative as well as the right lung base. PG Care Time/CCT Total # of Minutes Spent Total Time Spent with Patient: Total time spent is greater than 50% in coordination of care (as documented) at patient's floor/unit and/or counseling patient: Coding Level of Care Code 92140 Office/OBS Consult Lvl 5 Diagnoses Multifocal pneumonia J18.9 Acute respiratory failure with hypoxia J96.01 Time Spent (min) 45
[2020-09-19] MEDS ORDERED: PIPERACILLIN/TAZOBACTAM 4.5 GM in DEXTROSE 5% 100 ML IV SCH (18:00)
[2020-09-19] MEDS: PIPERACILLIN/TAZOBACTAM 3.375 GM in DEXTROSE 5% 100 ML IV SCH (20:02)
[2020-09-19] MEDS: ENOXAPARIN INJ 40 MG/0.4 ML SYR SQ SCH (21:22)
[2020-09-20] MEDS: PIPERACILLIN/TAZOBACTAM 3.375 GM in DEXTROSE 5% 100 ML IV SCH ×3 (04:13→20:00)
[2020-09-20 07:06] LABS: Basophils # (auto) 0.03 K/uL (0-0.2); Basophils % (auto) 0.2 %; Eosinophils # (auto) 0.14 K/uL (0-0.5); Eosinophils % (auto) 0.9 %; Hematocrit (blood only) 30.4 % (42-52); Hemoglobin 10.1 g/dL (14.0-18.0); Immature Granulocytes # (auto) 0.15 K/uL (0.00-0.02); Immature Granulocytes % (auto) 0.9 %; Lymphocytes % (auto) 6.2 %; Mean Corpuscular Hemoglobin 28.8 pg (25-34); Mean Corpuscular Hgb Conc 33.2 g/dL (32-36); Mean Corpuscular Volume 86.6 fL (80-100); Mean Platelet Volume 8.8 fL (7.4-10.4); Monocytes # (auto) 1.47 K/uL (0.11-0.59); Monocytes % (auto) 9.1 %; Neutrophils # (auto) 13.33 K/uL (1.4-6.5); Neutrophils % (auto) 82.7 %; Platelet Count 786 K/uL (130-400); RDW Coefficient of Variation 13.5 % (11.5-14.5); RDW Standard Deviation 43.1 fL (36.4-46.3); Red Blood Count 3.51 M/uL (4.7-6.1); White Blood Count 16.12 K/uL (4.8-10.8)
[2020-09-20] MEDS ORDERED: AZITHROMYCIN 500 MG in DEXTROSE 5% 250 ML IV SCH (09:00)
[2020-09-20] MEDS: AZITHROMYCIN 250 MG TAB PO SCH (09:01)
[2020-09-20] MEDS: NSS + 20MEQ KCL 20 MEQ/1,000 ML BAG IV SCH ×3 (09:01→23:55)
--- NOTE | 2020-09-20 09:13 | Hospitalist Progress Note ---
Date of Service September 20, 2020 Assessment & Plan (1) Sepsis: Source - bacterial multifocal pneumonia, CT has appearance of bacterial pneumonia, procalcitonin elevated, COVID, flu, RSV negative on admission repeated 09/17 continues to be negative - remains on precautions due to being on HFNC Cefepime and azithromycin- was briefly on vancomycin this was stopped as mrsa screen was negative (abx started on admission) - transition to oral azithromycin per pulmonary Moderate hypoxic respiratory failure will keep on PCU - improved breath sounds, hopefully can trial weaning off HFNC soon to MO. On admission, CXR and CTA noted for extensive b/l multifocal PNA, neg for PE Blood and sputum cx pending Procal elevated WBC increased, but improving - Trop at 0.07 on admission, trending downward - Fiance discussed with nursing this morning that she has concerns about pt ingesting opioids via nasal inhalation - discussed substance use with pt, he admits to smoking cigarettes, chewing tobacco but denied other use of illicit substances. Urine drug screen negative. No signs of acute withdrawal from opiods at this time and likely would have seen this if was actively using prior to hospitalization. (2) Multifocal pneumonia: -Cont cefepime and azithromycin, continue dependent appearance may suggest aspiration pneumonia follow up on blood cultures - Pulm consulted - appreciate recs for pt with significant hypoxia (3) Acute respiratory failure with hypoxia: - Aim O2 sats > 94%. Has been O2 sats of 88-90% on 45L/min overnight (4) Elevated troponin: - Suspect mild ischemia secondary to sepsis as above - no concerns for ACS, no further work up (5) Tobacco use disorder: - discussed substance use with pt, he admits to smoking cigarettes, chewing tobacco but denied other use of ilicit substances. Urine drug screen negative. -Cessation of tobacco products encouraged (6) Thrombocytosis: - Plt count of 786 today, continues to increase, pt diet is poor and appears dehydrated, on admission was normal at 277. - Pt is unaware of blood dyscrasia or other issues in the past - Follow with am cbc (7) DVT prophylaxis: Lovenox 40mg SQ daily CODE: Full Dispo: From home, likely to remain in hospital x 1-2 more days Admission and Anticipated Discharge Date Admission Date: September 16, 2020 Subjective The patient was seen and examined this morning. Pt says "I feel depressed". He reports that he had issues with tubing from the high flow being too short to get into the restroom, which was a fiasco. 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 He has been talking to his family/friends on the phone/facetime. He feels like all the staff looks the same because all he can see is our eyes with the gowning up which is sometimes confusing to him. We discussed trying to improve his exercise tolerance and test how he is feeling by walking in the room, using incentive spirometer, flutter valve. He was agreeable to this. Goal being able to downgrade the oxygen and be on nasal cannula only to be able to go home. Pt admits to smoking tobacco occasionally a nd chewing tobacco routinely. Denies other substance use/abuse. Denies any other acute issues. Review of Systems Review of Systems: Constitutional: No fever, sweats or chills Eyes: No diplopia, no worsening or blurred vision ENT: normal hearing, no trouble swallowing Respiratory: + cough, + white-yellow sputum, no dyspnea at rest, + MARINO with wearing high flow Cardiovascular: No chest pain, tightness or palpitations Abdomen: No pain, nausea, vomiting, diarrhea or constipation Musculoskeletal: No joint pain, calf pain, swelling Neurologic: No weakness, numbness/tingling, or balance problems Psychiatric: No anxiety or depression Skin: No rash or itch Physical Exam Physical Exam: General: awake, alert, no apparent distress, + thin Head: Normocephalic, atraumatic ENT: PERRL, EOMI, no pharyngeal exudate, mucous membranes moist Chest: + ON 45 L HFNC at bedside, Diminished breath sounds throughout, but no wheeze rales or rhonchi. No sputum production, occasional cough. Cardiac: Regular rate and rhythm, no murmur, no JVD, normal peripheral pulses, good capillary refill Abdominal: NABS x 4 quadrants, soft, nondistended, nontender to palpation, no rebound or guarding Extremities: Normal inspection, no peripheral edema or erythema, calfs nontender to palpation Psych: Depressed mood and affect, laughs appropriately, seemed to have better mood by the end of our visit. Neuro: AAO x 3, strength intact bilaterally and rated 5/5, no motor deficits, speech is clear, no peripheral sensory deficits Results & Data Results & Data ([facility]) Vital Signs (Past 12 Hours) Vital Signs Temp Pulse Pulse Resp BP Pulse Ox 09/20/20 07:12 64 20 88 L 09/20/20 03:52 37.2 C 70 20 110/58 L 92 09/20/20 02:34 76 18 91 09/19/20 23:35 37.5 C 85 20 104/57 L 94 09/19/20 23:00 80 18 92 PG Care Time/CCT Total # of Minutes Spent Total Time Spent with Patient: Total time spent is greater than 50% in coordination of care (as documented) at patient's floor/unit and/or counseling patient: Coding Level of Care Code 42384 Subseq Hosp Care Lvl 3 Diagnoses Sepsis A41.9 Sepsis acute organ dysfunction status: unspecified Sepsis type: sepsis due to unspecified organism Multifocal pneumonia J18.9 Acute respiratory failure with hypoxia J96.01 Elevated troponin R77.8 Tobacco use disorder F17.200 Thrombocytosis D47.3 DVT prophylaxis Z29.9 (1) Sepsis Sepsis acute organ dysfunction status: unspecified Sepsis type: sepsis due to unspecified organism Qualified Code(s): A41.9 - Sepsis, unspecified organism
--- NOTE | 2020-09-20 16:39 | Pulmonology Progress Note ---
Date of Service September 20, 2020 Assessment & Plan (1) Acute respiratory failure with hypoxia: This is a 54-year-old male that was admitted 09/16/2020 with pneumonia. He had two negative tests for Covid 19 at [facility] on 09/16/2020. He also had a negative bio fire on 09/16/2020 which was negative for any pulmonary pathology including viruses as well as influenza A and influenza B. Imaging reveals multifocal pneumonia. Patient has very poor dentition. It is suspected the patient has aspiration pneumonia. Recommendations: 1. Multifocal pneumonia: Patient is negative for Covid 19x2. His [place] pulmonary panel was also negative. Patient has very poor dentition and it is suspected the patient is suffering from bilateral aspiration pneumonia. He has received cefepime, Rocephin, azithromycin since admission. Yesterday patient was changed to Zosyn and azithromycin to cover for anaerobic's secondary to poor dentition. Today is currently day 5 of IV antibiotics. We will continue with high flow supplemental O2 to maintain SaO2 greater than 90%. Titrate supplemental oxygen as tolerated. We also encourage continued use of incentive spirometer and flutter valve. CTA of the chest was completed on 09/16/2020. This showed no acute evidence of pulmonary embolism. Procalcitonin was 1.99 on admission. Repeat procalcitonin this morning was 0.29. Leukocytosis is improved significantly from 33.07 on admission to 16.12 today. Patient is afebrile. Blood cultures are currently no growth to date x2. Sputum culture was obtained from expectorated sputum and shows moderate normal corie. 2. Dental infection: Patient has very poor dentition. I did discuss dental caries with the patient and suggested that he go to a dentist on discharge. I suggested that proper treatment of his teeth would help with overall health. 3. Hypoxemia: Patient is a long-term tobacco abuser. He has never seen a college archivist and has not had pulmonary function testing performed. Smoking cessation counseling is been suggested. At this point continue to titrate supplemental oxygen to maintain SaO2 at 90%. No indication for bronchoscopy at this time. Continue to work with incentive spirometry as well as flutter valve. Ambulate patient as tolerated. Out of bed to chair as tolerated. 4. Thrombocytosis patient's baseline platelet count is 277. On admission the patient's platelet count was 579. It continues to rise. At this point patient's platelet count is 786. It is much at patient's baseline platelet count was 277 which is well below normal of 450, there is most likely reactive thrombocytosis. Most likely etiology is infection with multifocal pneumonia. We will continue to follow patient's CBC and if after infection resolves patient continues to have elevated thrombocytes, may consider other etiology and referred to hematology. For now patient is asymptomatic. We will continue to monitor. 5. Tobacco abuse: Smoking cessation was suggested to the patient. A referral for smoking cessation consult was placed. At this point patient is deferring on NicoDerm patch. As patient feels better as pneumonia improves consider ordering 21 mg and remove each night. Thank you for including us in the care of this patient. We will continue to follow along with you. (2) Multifocal pneumonia: (3) Dental infection: (4) Elevated troponin: (5) Tobacco use disorder: Admission and Anticipated Discharge Date Admission Date: September 16, 2020 Subjective Attending: Dr. Jacobsen This is a 54-year-old male that was admitted 09/16/2020 with pneumonia. He had two negative tests for Covid 19 at [facility] on 09/16/2020. He also had a negative bio fire on 09/16/2020 which was negative for any pulmonary pathology including viruses as well as influenza A and influenza B. Imaging reveals multifocal pneumonia. Patient has very poor dentition. He has required high flow O2 and currently continues on that. He is saturating well. He does still have some shortness of breath with minimal exertion. He is afebrile. He denies any sweats. He does have occasional dark- colored sputum but denies any hemoptysis. He has no chest pain or tightness. He further denies specific pleuritic pain. He has no other acute complaints. Review of Systems Review of Systems: All systems reviewed & are unremarkable except as noted in Subjective Physical Exam Physical Exam: GENERAL : No acute distress EYES: No icterus, gaze conjugate NOSE: No evidence of epistaxis MOUTH: No lesions or candidiasis NECK: Supple LUNGS: Bibasilar crackles. Patient also has some bronchospasm. Deep inspiration induces cough. HEART: Regular, rate controlled at rest but tachycardic with minimal exertion ABDOMEN: Soft, NT, ND, BS Present EXTREMITIES: No LE edema, pedal pulses intact NEURO: A&OX3 Results & Data Results & Data ([facility]) Vital Signs (Past 12 Hours) Vital Signs Temp Pulse Pulse Pulse Resp BP Pulse Ox 09/20/20 15:43 36.9 C 77 18 111/75 96 09/20/20 14:45 78 20 94 09/20/20 12:31 36.7 C 86 20 105/68 89 L 09/20/20 08:00 36.5 C 73 89 22 126/64 90 09/20/20 07:12 64 20 88 L Laboratory Results 09/20/20 06:45 09/19/20 07:20 Diagnostic Findings XR chest 1V portable 09/19/2020 CLINICAL HISTORY: multifocal PNA, worsening hypoxia COMPARISON STUDY: Chest radiograph and chest CT September 16, 2020. FINDINGS: Extensive bilateral consolidation has increased since prior chest CT. There are trace bilateral pleural effusions. There is no pneumothorax. Cardiomediastinal silhouette is stable. There is no evidence for pulmonary edema. IMPRESSION: Progression of extensive bilateral consolidation consistent with multifocal pneumonia. ACT 112: Negative or not required by law. Electronically signed by: Fabricio Healy M.D. 09/19/2020 10:13 AM PG Care Time/CCT Total # of Minutes Spent Total Time Spent with Patient: Total time spent is greater than 50% in coordination of care (as documented) at patient's floor/unit and/or counseling patient: 25 minutes Coding Level of Care Code 14795 Subseq Hosp Care Lvl 2 Diagnoses Acute respiratory failure with hypoxia J96.01 Multifocal pneumonia J18.9 Dental infection K04.7 Elevated troponin R77.8 Tobacco use disorder F17.200 Time Spent (min) 25
[2020-09-20] MEDS: ENOXAPARIN INJ 40 MG/0.4 ML SYR SQ SCH (20:33)
[2020-09-21] MEDS: PIPERACILLIN/TAZOBACTAM 3.375 GM in DEXTROSE 5% 100 ML IV SCH ×2 (03:05→11:58)
[2020-09-21] MEDS: AZITHROMYCIN 250 MG TAB PO SCH (08:06)
[2020-09-21 08:36] LABS: Creatinine Clr Calc Pharmacy 155.3 ml/min; Est GFR (African American) 146.9; Est GFR (Non-African American) 126.7
[2020-09-21] MEDS: NSS + 20MEQ KCL 20 MEQ/1,000 ML BAG IV SCH (11:58)
--- NOTE | 2020-09-21 13:09 | Hospitalist Progress Note ---
Date of Service September 21, 2020 Assessment & Plan (1) Sepsis: Patient has Legionella antigen confirmed in urine this is likely Legionella pneumonia. COVID, flu, RSV negative on admission repeated 09/17 continues to be negative -Taras with significant oxygen requirements Azithromycin 750 daily Continues with moderate hypoxic respiratory failure will keep on PCU On admission, CXR and CTA noted for extensive b/l multifocal PNA, neg for PE Blood and sputum cx negative to date Procal elevated Legionella antigen positive WBC improving - Trop at 0.07 on admission, trending downward Urine drug screen negative. (2) Legionella pneumonia: (3) Acute respiratory failure with hypoxia: - Aim O2 sats > 90%. Has been O2 sats of 88-90% on 45L/min overnight (4) Elevated troponin: - Suspect mild ischemia secondary to sepsis as above - no concerns for ACS, no further work up (5) Tobacco use disorder: - discussed substance use with pt, he admits to smoking cigarettes, chewing tobacco but denied other use of ilicit substances. Urine drug screen negative. -Cessation of tobacco products encouraged (6) Thrombocytosis: -Likely acute phase reactant (7) DVT prophylaxis: Lovenox 40mg SQ daily CODE: Full Dispo: From home, likely to remain in hospital x 1-2 more days Admission and Anticipated Discharge Date Admission Date: September 16, 2020 Subjective Patient feels better every day he is getting little bit stir crazy from just being in the hospital he still has a fairly significant oxygen requirement. He is having very little help from inhaled bronchodilator disease will be discontinued. He did have evidence of a positive urinary antigen for Legionella subsequently he will be transitioned to levofloxacin. His biggest issue is persistent acute hypoxic respiratory failure Review of Systems Review of Systems: Constitutional: No fever, sweats or chills Eyes: No diplopia, no worsening or blurred vision ENT: normal hearing, no trouble swallowing Respiratory: + cough, + white-yellow sputum, no dyspnea at rest, + MARINO with tapering oxygen Cardiovascular: No chest pain, tightness or palpitations Abdomen: No pain, nausea, vomiting, diarrhea or constipation Musculoskeletal: No joint pain, calf pain, swelling Neurologic: No weakness, numbness/tingling, or balance problems Psychiatric: No anxiety or depression Skin: No rash or itch Physical Exam Physical Exam: The patient appeared thin about his usual condition for age Vital signs as documented. Head exam is normocephalic atraumatic no scleral icterus Neck is without JVD, thyromegaly, or carotid bruits. Lungs decreased breath sounds at bilateral bases coarse rhonchi continue to be heard bilaterally Cardiac exam, Rhythm is regular.. No murmurs, rubs or gallops. Abdominal exam reveals normal bowel sounds, soft non tender, no masses Extremities are nonedematous and both pedal pulses are present Neurologic exam is alert and oriented, no focal loss of strength or sensation Skin is without bruises or rashes Psychologically is without concerns for anxiety or depression. Results & Data Results & Data ([facility]) Vital Signs (Past 12 Hours) Vital Signs Temp Pulse Pulse Resp BP BP Pulse Ox 09/21/20 12:00 98.2 F 76 18 123/77 93 09/21/20 08:00 98.1 F 78 86 19 119/70 92 09/21/20 07:53 20 09/21/20 05:17 70 22 95 09/21/20 03:42 98.6 F 84 20 127/77 94 PG Care Time/CCT Total # of Minutes Spent Total Time Spent with Patient: Total time spent is greater than 50% in coordination of care (as documented) at patient's floor/unit and/or counseling patient: Coding Level of Care Code 41670 Subseq Hosp Care Lvl 2 Diagnoses Sepsis A41.9 Sepsis acute organ dysfunction status: unspecified Sepsis type: sepsis due to unspecified organism Legionella pneumonia A48.1 Acute respiratory failure with hypoxia J96.01 Elevated troponin R77.8 Tobacco use disorder F17.200 Thrombocytosis D47.3 DVT prophylaxis Z29.9 (1) Sepsis Sepsis acute organ dysfunction status: unspecified Sepsis type: sepsis due to unspecified organism Qualified Code(s): A41.9 - Sepsis, unspecified organism
--- NOTE | 2020-09-21 13:52 | Pulmonology Progress Note ---
Date of Service September 21, 2020 Assessment & Plan (1) Acute respiratory failure with hypoxia: This is a 54-year-old male that was admitted 09/16/2020 with pneumonia. His urinary Legionella antigen is positive consistent with legionnaires disease. He is improving with a azithromycin Recommendations: 1. Multifocal pneumonia: Patient is negative for Covid 19x2. His bio fire p ulmonary panel was also negative. At this point time I would recommend discontinuing the Zosyn and azithromycin and transitioning him to levofloxacin 750 mg IV daily. He can transition to oral once his oxygen requirement is stable. He should have a follow-up chest x-ray in 2 to 4 weeks to ensure resolution of the airspace opacity. I discussed the case with infection control and she will notify the department of health. It is unclear if the patient was exposed while working in the [employer]. 2. Hypoxemia: Patient is a long-term tobacco abuser. Significant improvement in oxygenation. Continue pulmonary toilet. The patient was advised to be sitting in the chair as much as possible unless he sleeping in which case he can be supine in bed. Titrate oxygen to maintain saturations at or above 88%. Can consider dismissal from the hospital once his oxygen requirement can be safely met at home. We will sign off at this point time. Feel free to contact us if we can be of ad ditional assistance. (2) Multifocal pneumonia: (3) Dental infection: (4) Elevated troponin: (5) Tobacco use disorder: Admission and Anticipated Discharge Date Admission Date: September 16, 2020 Subjective Patient seen and examined. He has been weaned down to oxygen at 8 L nasal cannula. He is coughing but overall feeling better. He is tolerating a diet. Review of Systems Review of Systems: Unchanged from prior Physical Exam Constitutional: WD/WN, vitals as above Neck: trachea midline, no thyromegaly Respiratory: normal respiratory effort Coarse breath sounds at the bilateral bases Cardiovascular: RRR, no murmur, no edema Gastrointestinal (Abdomen): normal bowel sounds, soft, nontender, no hepatosplenomegaly Musculoskeletal: Extremities: extremities normal to inspection Skin: no rashes, warm and dry Lymphatic: no cervical lymphadenopathy Results & Data Results & Data ([facility]) Vital Signs (Past 12 Hours) Vital Signs Temp Pulse Pulse Resp BP BP Pulse Ox 09/21/20 12:00 36.8 C 76 18 123/77 93 12/16/20 08:00 36.7 C 78 86 19 119/70 92 09/21/20 07:53 20 09/21/20 05:17 70 22 95 09/21/20 03:42 37.0 C 84 20 127/77 94 Laboratory Results 09/20/20 06:45 09/21/20 07:47 Legionella urinary antigen positive Diagnostic Findings No new imaging PG Care Time/CCT Total # of Minutes Spent Total Time Spent with Patient: Total time spent is greater than 50% in coordination of care (as documented) at patient's floor/unit and/or counseling patient: Coding Level of Care Code 85088 Subseq Hosp Care Lvl 3 Diagnoses Acute respiratory failure with hypoxia J96.01 Multifocal pneumonia J18.9 Dental infection K04.7 Elevated troponin R77.8 Tobacco use disorder F17.200
[2020-09-21] MEDS ORDERED: levoFLOXacin 750 MG TAB PO ONE (16:00)
[2020-09-21] MEDS: ENOXAPARIN INJ 40 MG/0.4 ML SYR SQ SCH (19:15)
[2020-09-22] MEDS: NSS + 20MEQ KCL 20 MEQ/1,000 ML BAG IV SCH (00:06)
--- NOTE | 2020-09-22 09:10 | Hospitalist Progress Note ---
Date of Service September 22, 2020 Assessment & Plan (1) Sepsis: Patient has Legionella antigen confirmed in urine this is likely Legionella pneumonia. COVID, flu, RSV negative on admission repeated 09/17 continues to be negative -Taras with significant oxygen requirements Azithromycin 750 daily Continues with moderate hypoxic respiratory failure will keep on PCU On admission, CXR and CTA noted for extensive b/l multifocal PNA, neg for PE Blood and sputum cx negative to date Procal elevated Legionella antigen positive WBC improving - Trop at 0.07 on admission, trending downward Urine drug screen negative. (2) Legionella pneumonia: (3) Acute respiratory failure with hypoxia: - Aim O2 sats > 90%. Has been O2 sats of 88-90% on 45L/min overnight (4) Elevated troponin: - Suspect mild ischemia secondary to sepsis as above - no concerns for ACS, no further work up (5) Tobacco use disorder: - discussed substance use with pt, he admits to smoking cigarettes, chewing tobacco but denied other use of ilicit substances. Urine drug screen negative. -Cessation of tobacco products encouraged (6) Thrombocytosis: -Likely acute phase reactant (7) DVT prophylaxis: Lovenox 40mg SQ daily CODE: Full Dispo: From home, likely to remain in hospital x 1-2 more days Admission and Anticipated Discharge Date Admission Date: September 16, 2020 Subjective Patient seen and examined. He has been weaned down to oxygen at 8 L nasal cannula. He is coughing but overall feeling better. He is tolerating a diet. Review of Systems Review of Systems: Constitutional: No fever, sweats or chills Eyes: No diplopia, no worsening or blurred vision ENT: normal hearing, no trouble swallowing Respiratory: + cough, + white-yellow sputum, no dyspnea at rest, + MARINO with tapering oxygen Cardiovascular: No chest pain, tightness or palpitations Abdomen: No pain, nausea, vomiting, diarrhea or constipation Musculoskeletal: No joint pain, calf pain, swelling Neurologic: No weakness, numbness/tingling, or balance problems Psychiatric: No anxiety or depression Skin: No rash or itch Physical Exam Physical Exam: The patient appeared thin about his usual condition for age Vital signs as documented. Head exam is normocephalic atraumatic no scleral icterus Neck is without JVD, thyromegaly, or carotid bruits. Lungs decreased breath sounds at bilateral bases coarse rhonchi continue to be heard bilaterally Cardiac exam, Rhythm is regular.. No murmurs, rubs or gallops. Abdominal exam reveals normal bowel sounds, soft non tender, no masses Extremities are nonedematous and both pedal pulses are present Neurologic exam is alert and oriented, no focal loss of strength or sensation Skin is without bruises or rashes Psychologically is without concerns for anxiety or depression. Results & Data Results & Data ([facility]) Vital Signs (Past 12 Hours) Vital Signs Temp Pulse Pulse Resp BP Pulse Ox 09/22/20 07:40 99.0 F 70 20 135/84 93 09/22/20 03:30 98.2 F 76 18 127/71 92 09/22/20 01:18 73 09/22/20 00:34 98.8 F 76 18 133/75 93 PG Care Time/CCT Total # of Minutes Spent Total Time Spent with Patient: Total time spent is greater than 50% in coordination of care (as documented) at patient's floor/unit and/or counseling patient: Coding Diagnoses Sepsis A41.9 Sepsis acute organ dysfunction status: unspecified Sepsis type: sepsis due to unspecified organism Legionella pneumonia A48.1 Acute respiratory failure with hypoxia J96.01 Elevated troponin R77.8 Tobacco use disorder F17.200 Thrombocytosis D47.3 DVT prophylaxis Z29.9 (1) Sepsis Sepsis acute organ dysfunction status: unspecified Sepsis type: sepsis due to unspecified organism Qualified Code(s): A41.9 - Sepsis, unspecified organism
[2020-09-22] MEDS ORDERED: levoFLOXacin 750 MG TAB PO SCH (11:00)
--- NOTE | 2020-09-22 18:05 | Discharge Summary ---
Date of Service September 22, 2020 Admission HPI Per Admitting Provider Oskar Kaba is a 54-year-old male with tobacco use disorder who presents to the ER via EMS with hypoxia, shortness of breath and fevers. He reports having symptoms for the past 6 days with increasing shortness of breath (especially on exertion), occasional cough (few blood-tinged), loss of appetite, loss of taste. He denies any headache, abdominal pain, diarrhea, known COVID-19 exposure. O2 sats 70% on arrival of EMS. Mild upper chest pain on deep inspiration, sharp, no radiation, no worse on exertion. No orthopnea, PND, claudication, palpitations. In the ER he was febrile with a temperature of 38.2 C, tachypneic, hypoxic. CXR concerning for multifocal PNA. He was referred to medicine Principal Diagnosis legionella pneumonia, acute hypoxic respiratory failure Discharge Exam The patient appeared well Vital signs as documented. Lungs are bibasilar coarse crackles patient does require oxygen at home he wishes to go home on oxygen rather than stay any longer in the hospital Cardiac exam, Rhythm is regular.. No murmurs, rubs or gallops. Abdominal exam reveals normal bowel sounds, soft non tender, no masses Extremities are nonedematous and both pedal pulses are normal. Neurologic exam is alert and oriented, no focal loss of strength or sensation Skin is without bruises or rashes Psychologically is without concerns for anxiety or depression. Discharge Data Allergies Allergy/AdvReac Type Severity Reaction Status Date / Time No Known Allergies Allergy Unverified 09/16/20 12:35 Consultations 09/16/20 12:56 ED Decision to Admit Stat 09/19/20 12:50 Consult Pulmonology Routine Ordered Studies 09/16/20 12:42 CT angio chest PE protocol Stat Hospital Course (1) Sepsis: Patient has Legionella antigen confirmed in urine this is likely Legionella pneumonia. COVID, flu, RSV negative on admission repeated 09/17 continues to be negative -Taras with significant oxygen requirements Levofloxacin 750 mg a day for 14 additional days hypoxic respiratory failure patient home oxygen On admission, CXR and CTA noted for extensive b/l multifocal PNA, neg for PE Blood and sputum cx negative to date Procal elevated Legionella antigen positive - Trop at 0.07 on admission, trending downward Urine drug screen negative. (2) Legionella pneumonia: (3) Acute respiratory failure with hypoxia: -Patient is on room air at rest but requires up to 4 L on exertion he will be set up for home oxygen (4) Elevated troponin: - Suspect mild ischemia secondary to sepsis as above - no concerns for ACS, no further work up feels this is a demand ischemia situation (5) Tobacco use disorder: - discussed substance use with pt, he admits to smoking cigarettes, chewing tobacco but denied other use of ilicit substances. Urine drug screen negative. 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 Call non-emergency contact if: you have any medication questions and your symptoms worsen Follow-up/Referrals: Florin Feng MD [Primary Care Provider] - 09/27/20 11:00 am Diet: Regular Addtl Attending Provider Instructions: please rest and recover good sleep , food and hydration complete all of your antibiotic Pending Studies at Discharge: No Stand-Alone Forms: My [facility] Next[employer], Smoking Cessation Medications and DC Order Prescriptions: New levofloxacin 750 mg Tablet 750 mg PO DAILY@1100 Qty: 14 RF: 0 (DME) Oxygen Home Liters Per Minute 4 ea .Route DAILY Qty: 1 RF: 0 Continued acetaminophen [Tylenol Extra Strength] 500 mg Tablet 500 mg PO Q6H PRN (Reason: Pain) RF: 0 ibuprofen [Advil] 200 mg Tablet 200 mg PO Q6H PRN (Reason: Pain) RF: 0 Discharge Orders: Discharge Order (Routine); Ordered 09/22/20 Ordered By: German Rai Admission Data Admit Date/Time: 09/16/20 14:10 Attending Provider: German Rai Admit Provider: Richy Rizvi Primary Care Provider: Florin Feng Other Providers: Richy Rizvi ; Loc Jacobsen Other Interventions: Discharge Summary Assessment (RN) Last Done: 09/22/20 14:35 Coding Level of Care Code D/C Day Management >30 mins Diagnoses Sepsis A41.9 Sepsis acute organ dysfunction status: unspecified Sepsis type: sepsis due to unspecified organism Legionella pneumonia A48.1 Acute respiratory failure with hypoxia J96.01 Elevated troponin R77.8 Tobacco use disorder F17.200 Thrombocytosis D47.3
== END 2020-09-22 15:00 | disposition home or self-care (01) | DRG 871 ==
LOC: ED 10:47 → 2S 14:10 → SUATTDRO 14:10 → 2S 17:57